=== PATIENT | male | born 1965 | race Caucasian/White ===

== ENCOUNTER 2017-05-17 11:39 | Emergency (ER) | payer BC ==
[~2017-05-17] VITALS: Ht 182.9 cm; Wt 85.7 kg
[~2017-05-17 11:39] MED LIST: CELE100C PO; ETAN50IN2 PO; INSDGI SC; NVLGI SC; TPRSR/50 PO
[2017-05-17 11:49] VITALS: TEMP 37.1; Ht 182.9 cm; Wt 85.7 kg
[2017-05-17] MEDS ORDERED: CEFAZOLIN SOD 1000MG/55 ML D5W IV STA (12:46)
[2017-05-17] MEDS ORDERED: CEPH500C PO (13:25)
[2017-05-17] MEDS ORDERED: ONDA4TAB10 SL (13:25)
--- NOTE | 2017-05-17 13:25 | EMERGENCY ROOM VISIT NOTE ---
History Report prepared by Deeibhilario: Emily Romano Under the Supervision of: Dr. Antonino Peralta D.O. First contact with patient: 12:17 Chief Complaint: FOOT PAIN Stated Complaint: TOE ON RT FOOT/LOWER LEG PAIN-BURNING History of Present Illness The patient is a 52 year old male who presents to the Emergency Room with complaints of persistent right leg pain for the past few days. He describes the pain as feeling like a "burning sensation". The patient has a history of type 1 diabetes and reports this morning while putting on his shoes, he felt a "tug". When he checked his right second toe, the toenail had almost completely detached. He rates his discomfort as a 3/10. He denies any recent injuries or trauma to the area. Source of History: patient Onset: past few days Position: leg (right) Symptom Intensity: 3/10 Quality: burning Timing: other (persistent) Review of Systems See HPI for pertinent positives & negatives. A total of 10 systems reviewed and were otherwise negative. Past Medical & Surgical Medical Problems: (1) Hypertension Nos (2) Psoriatic arthritis (3) Type 1 diabetes mellitus (4) Unspecified Episodic Mood Disorder Social History Smoking Status: Never Smoker Alcohol Use: none Drug Use: none Marital Status: Housing Status: lives with significant other Occupation Status: unemployed Current/Historical Medications Scheduled Celecoxib (Celebrex), 100 MG PO BID Cephalexin Monohydrate (Keflex), 500 MG PO QID Etanercept (Enbrel), 50 MG PO WK Insulin Aspart (Novolog), 0 SC TIDM Insulin Glargine (Lantus), 12 SC QAM Metoprolol Succinate (Metoprolol Succinate ER), 50 MG PO BID Ondasetron Odt (Zofran Odt), 4 MG SL Q6H Allergies Coded Allergies: Sulfa Antibiotics (Verified Allergy, Intermediate, RASH, 06/06/14) Uncoded Allergies: ANTIVIRALS (Adverse Reaction, Severe, KIDNEY FAILURE, 06/06/14) Physical Exam Vital Signs Date Time Temp Pulse Resp B/P (MAP) Pulse Ox O2 Delivery O2 Flow Rate FiO2 05/17/17 11:49 37.1 87 18 129/77 99 Room Air Physical Exam CONSTITUTIONAL/VITAL SIGNS: Reviewed / noted above. GENERAL: Non-toxic in appearance. INTEGUMENTARY: Warm, dry, and [place]. HEAD: Normocephalic. EYES: without scleral icterus or trauma. ENT/OROPHARYNX: clear and moist. LYMPHADENOPATHY/NECK: Is supple without lymphadenopathy or meningismus. RESPIRATORY: Lungs clear and equal. CARDIOVASCULAR: Regular rate and rhythm. GI/ABDOMEN: Soft and nontender. No organomegaly or pulsatile mass. No rebound or guarding. Normal bowel sounds. EXTREMITIES: Warm and well perfused. Redness to the distal half of the 2nd right toe. No obvious abscess. Small red streak is noted on the dorsal aspect of the right foot and several inches up his right leg. BACK: No CVA tenderness. NEUROLOGICAL: Intact without focal deficits. PSYCHIATRIC: normal affect. MUSCULOSKELETAL: Normally developed with good muscle tone. Medical Decision & Procedures Medications Administered Medications (Trade) Dose Ordered Sig/Arsh Route Start Time Stop Time Status Last Admin Dose Admin Cefazolin Sodium (Ancef 1000mg/55 ml D5W) 2,000 mg NOW STAT IV 05/17/17 12:46 05/17/17 12:48 DC 05/17/17 13:05 2,000 MG ED Course 1242: Previous medical records were reviewed. The patient was evaluated in room B2. A complete history and physical examination was performed. 1246: Cefazolin Sodium 2000 mg IV. 1325: I reevaluated the patient. He is feeling well and resting comfortably. I discussed his results and discharge instructions and he verbalized complete understanding and agreement. Medical Decision Differential diagnosis: Etiologies such as cellulitis, abscess, MRSA infection, DVT, necrotizing fasciitis, dermatitis, drug eruption, as well as others were entertained.. This is a 52-year-old male who presents to the ED with a complaint of a right toe infection. He also reports history of diabetes. The patient noticed that this morning. He states that it seemed like his toenail was falling off. The patient's exam reveals evidence of a cellulitis of the right second distal toe. The distal half of the toe is erythematous and there is a small amount of discharge from under the nail. There is no obvious abscess. There is a red streak that travels up the dorsal aspect of the foot into the right distal leg. The patient denies any fevers, nausea or vomiting. He was given IV Ancef. He will be discharged on Keflex. He was given Zofran for nausea that he states that he sometimes gets when taking antibiotics. He is told to follow-up with his PCP later this week for recheck. Medication Reconcilliation Current Medication List: was personally reviewed by me Blood Pressure Screening Patient's blood pressure: Normal blood pressure Blood pressure disposition: Did not require urgent referral Impression Primary Impression: Cellulitis Scribe Attestation The scribe's documentation has been prepared under my direction and personally reviewed by me in its entirety. I confirm that the note above accurately reflects all work, treatment, procedures, and medical decision making performed by me. Departure Information Dispostion Home / Self-Care Prescriptions Ondasetron Odt (ZOFRAN ODT) 4 Mg Tab 4 MG SL Q6H for Nausea, #20 TAB Prov: Antonino Peralta D.O. 05/17/17 Cephalexin Monohydrate (Keflex) 500 Mg Cap 500 MG PO QID, #40 CAP Prov: Antonino Peralta D.O. 05/17/17 Referrals Linda Schreiber D.O. (PCP) Patient Instructions Cellulitis - [facility], [facility] Additional Instructions Keflex as prescribed for infection. Follow-up with your doctor Friday or Friday for recheck. Return for fevers , vomiting, worsening redness or other concerns. Zofran: Allow one tablet to dissolve under the tongue every 6 hours as needed for nausea or vomiting.
[2017-05-17] MEDS ORDERED: MULT-506 PO (13:32)
[2017-05-17] MEDS ORDERED: ASPI81TA28 PO (13:32)
[2017-05-17] MEDS ORDERED: MAGN400T6 PO (13:32)
[2017-05-17] MEDS ORDERED: HYDR-4313 PO (13:32)
[2017-05-17] MEDS ORDERED: PANT20TA PO (13:32)
[2017-05-17 14:15] VITALS: BP 138/74; PULSE 85; O2SAT 100
== END 2017-05-17 14:17 | disposition home or self-care (01) ==
LOC: C.EDB 11:41
DX: L03.031 Cellulitis of right toe (principal); E10.9 Type 1 diabetes mellitus without complications; I10 Essential (primary) hypertension; L40.50 Arthropathic psoriasis, unspecified; Z79.4 Long term (current) use of insulin; Z79.899 Other long term (current) drug therapy

== ENCOUNTER 2020-03-15 14:02 | Inpatient (IN) ==
--- NOTE | 2020-03-15 15:28 | Emergency Department Note ---
Impression & Plan Chest pain, exertional, Acute hyperkalemia ED Provider Note NAME: ALIA PHELPS AGE: 54 SEX: M : 1965 ARRIVES VIA: Walk-In INFORMANT: Patient, ED PROVIDER(S): Mckay Gomez DO CHIEF COMPLAINT: Chest pain HPI: The patient is a 54-year-old male who presented to the emergency department for an evaluation of chest pain. The patient states that he started having exertional chest pain recently. He states that he likes to exercise and he is been walking more outside. He started to notice that when he exerts himself he was developing chest pain which relieved with rest. 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 He was scheduled for cardiac catheterization because of his risk factors and exertional chest pain. Precardiac catheterization laboratory studies did reveal elevated potassium. This blood work was repeated today and the patient was sent to the emergency department for an evaluation. The patient at this time states that he has no chest pain. He denies having any difficulty breathing. He denies having any edema or abdominal pain. He states that he has been taking ibuprofen canp-gwn-foctnia recently. He was switched recently to Celebrex. He states that at one time when he was a child he did develop renal insufficiency because of treatment for TERMITE CONTROL REPRESENTATIVE infection. The patient states that he is never had any problems with his kidneys as far as he knows other than that time when he was young. The patient was referred to the emergency department by his cardiology office. ROS: See above HPI for pertinent positives & negatives. A total of 10 systems reviewed and were otherwise negative. PAST MEDICAL HISTORY: See Below PAST SURGICAL HISTORY: See Below FAMILY HISTORY: See Below SOCIAL HISTORY: See Below HOME MEDICATIONS: See Below ALLERGIES: See Below VITALS: See Below PHYSICAL EXAMINATION: GENERAL: Patient is awake alert in no acute distress patient is resting comfortably and showing no signs of anxiety EYES: The conjunctivae are clear. The pupils are round and reactive. EARS, NOSE, MOUTH AND THROAT: The nose is without any evidence of any deformity. Mucous membranes are moist. Tongue is midline. NECK: The neck is nontender and supple. RESPIRATORY: Normal respiratory effort is noted there is no evidence of wheezing rhonchi or rales CARDIOVASCULAR: Regular rate and rhythm noted there no murmurs rubs or gallops normal S1 normal S2. GASTROINTESTINAL: The abdomen is soft. Abdomen is nontender. MUSCULOSKELETAL/EXTREMITIES: There is no evidence of gross deformity full range of motion is noted in the hips and shoulders. SKIN: There is no obvious evidence of any rash. There are no petechiae, pallor or cyanosis noted. NEUROLOGIC: Patient is awake alert and oriented x3 strength is symmetric patellar reflexes are 2+ bilaterally MEDICAL DECISION MAKING: The patient is a 54-year-old male who presented to the emergency department for an evaluation of abnormal labs. The patient has been experiencing exertional chest pain recently. Given his risk factors he was felt to be at high risk for coronary artery disease. He was scheduled for cardiac catheterization. On his pre-cath laboratory studies the patient was found to have hyperkalemia. This was repeated and found to be elevated and not due to hemolysis. The patient was told to go to the emergency department. He presented to the emergency department. He was treated with IV fluids. EKG does show some slight peaked T waves but it does look very close to his previous EKG. He was treated with IV fluids and eventually with Kayexalate insulin dextrose and calcium. The patient was reevaluated multiple times. I discussed the patient's laboratory and radiographic studies with him. Likely the patient will still require further management and cardiac catheterization so I discussed his case with [facility] They have agreed to evaluate the patient in the emergency department for further management disposition. Triage Nursing notes reviewed. Prior medical records reviewed Vital Signs: reviewed and remarkable for hypertension Differential diagnosis: Cardiac ischemia, aortic dissection, pulmonary embolism, pneumothorax, pneumonia, pericarditis, myocarditis, esophageal rupture, GERD, cholecystitis, pancreatitis, musculoskeletal, as well as other pathologies. ER treatment provided: See below Diagnostics interpreted by me: ECG: EKG was obtained in the emergency department. My interpretation is sinus bradycardia 57 bpm. There is no ectopy. Peaked T waves were noted. This was compared to a tracing from November 26, 2018. No significant changes were noted. Cardiac Monitoring: An order was placed for continuous cardiac monitoring. The monitor shows a rate of 66 with sinus rhythm. Laboratory studies: As stated above and show below. Imaging studies: See below Consultation(s): 1650: I discussed this case with Morenita who is on-call for the [facility]. They have agreed to evaluate the patient in the emergency department for further management and disposition. I have personally spent greater than 35 minutes of critical care time in the direct management of this patient. This includes bedside care, interpretation of diagnostic studies, and testing, discussion with consultants, patient, and family members, and other required patient management activities. This 35 minutes is in excess of all separately billable procedures. Past Med/Surg History Medical History Diabetes type 1, controlled (Acute) Dyslipidemia History of viral meningitis HTN (hypertension) Inappropriate sinus tachycardia Macular edema Neuropathy Psoriatic arthritis Surgical History History of cataract surgery Family History Mother Rheumatoid arthritis Social History Preferred Language: Tanzanian Communication Ability: Effective Beliefs That Will Affect Care: None Current Living Situation: Significant Other Other Information That Helps Us Care for You: No Feels Safe at Home: Yes Smoking Status: Never smoker Hx Alcohol Use: No Hx Substance Use: No Allergies Allergies Allergy/AdvReac Type Severity Reaction Status Date / Time Sulfa (Sulfonamide Allergy Intermediate RASH Verified 03/15/20 15:58 Antibiotics) milk AdvReac Intermediate STOMACH Verified 03/15/20 15:58 UPSET ANTIVIRALS AdvReac Severe KIDNEY Uncoded 03/15/20 15:58 FAILURE Home Meds Home Medications Medication Instructions Recorded Confirmed albuterol sulfate [Ventolin HFA] 2 puff INHALATION DIRECTED PRN 11/26/18 03/15/20 aspirin [Aspir-81] 81 mg PO QAM 11/26/18 03/15/20 hydrocodone-acetaminophen [[place]] 1 tab PO Q6H PRN 11/26/18 03/15/20 sildenafil 100 mg PO DAILY PRN 11/26/18 03/15/20 celecoxib 200 mg PO .HOLD 03/15/20 03/15/20 clobetasol 1 applic TOPICAL BID PRN 03/15/20 03/15/20 erythromycin-benzoyl peroxide 1 applic TOPICAL DAILY 03/15/20 03/15/20 etanercept [Enbrel SureClick] 50 mg SUBCUT WK 03/15/20 03/15/20 folic acid 1 mg PO DAILY 03/15/20 03/15/20 insulin aspart U-100 [Novolog See Rx Instructions .ROUTE .COMPLEX 03/15/20 03/15/20 U-100 Insulin aspart] lisinopril 10 mg PO QAM 03/15/20 03/15/20 lorazepam 0.5 - 1 mg PO DIRECTED PRN 03/15/20 03/15/20 metoprolol succinate 100 mg PO QAM 03/15/20 03/15/20 pantoprazole 20 mg PO QAM 03/15/20 03/15/20 Results & Data (ED) Vital Signs Vital Signs - 24 hr 03/15/20 14:12 03/15/20 15:29 03/15/20 15:30 Temperature 37 C Temperature Source Oral Pulse Rate 63 64 60 Pulse Rhythm Regular Pulse Strength Normal Respiratory Rate 20 15 25 H Respiratory Depth Normal Respiratory Pattern Regular Blood Pressure 151/85 H Blood Pressure Mean 107 Blood Pressure Position Lying Oxygen Delivery Method Room Air Sepsis Recent Fever Within 48 Hours No Sepsis Action Taken by Nursing No Action Required 03/15/20 15:40 03/15/20 15:50 03/15/20 16:00 Temperature Temperature Source Pulse Rate 63 51 L 52 L Pulse Rhythm Pulse Strength Respiratory Rate 17 20 16 Respiratory Depth Respiratory Pattern Blood Pressure Blood Pressure Mean Blood Pressure Position Oxygen Delivery Method Sepsis Recent Fever Within 48 Hours Sepsis Action Taken by Nursing 03/15/20 16:10 03/15/20 16:20 03/15/20 16:30 Temperature Temperature Source Pulse Rate 56 L 52 L 47 L Pulse Rhythm Pulse Strength Respiratory Rate 18 20 21 Respiratory Depth Respiratory Pattern Blood Pressure Blood Pressure Mean Blood Pressure Position Oxygen Delivery Method Sepsis Recent Fever Within 48 Hours Sepsis Action Taken by Nursing 03/15/20 16:40 03/15/20 16:51 03/15/20 16:52 Temperature Temperature Source Pulse Rate 59 L 56 L 52 L Pulse Rhythm Pulse Strength Respiratory Rate 26 H 20 18 Respiratory Depth Respiratory Pattern Blood Pressure 158/81 H Blood Pressure Mean 96 Blood Pressure Position Oxygen Delivery Method Sepsis Recent Fever Within 48 Hours Sepsis Action Taken by Snf Medications Current Medication List: was personally reviewed by me Laboratory Data Attestation: I reviewed the patient's lab results. Result diagrams: 03/16/20 05:20 03/16/20 05:20 Lab Results 06/17/20 06/17/20 06/17/20 Range/Units 15:38 15:38 15:38 WBC 7.90 (4.8-10.8) K/uL RBC 4.62 L (4.7-6.1) M/uL Hgb 13.0 L (14.0-18.0) g/dL Hct 38.9 L (42-52) % MCV 84.2 (80-100) fL MCH 28.1 (25-34) pg MCHC 33.4 (32-36) g/dL RDW Std Deviation 38.7 (36.4-46.3) fL RDW Coeff of Jose Enrique 12.8 (11.5-14.5) % Plt Count 218 (130-400) K/uL MPV 11.6 H (7.4-10.4) fL Immature Gran % (Auto) 0.1 % Neut % (Auto) 64.9 % Lymph % (Auto) 26.6 % [place] % (Auto) 6.1 % Eos % (Auto) 1.8 % Baso % (Auto) 0.5 % Immature Gran # (Auto) 0.01 (0.00-0.02) K/uL Neut # (Auto) 5.13 (1.4-6.5) K/uL Lymph # (Auto) 2.10 (1.2-3.4) K/uL [place] # (Auto) 0.48 (0.11-0.59) K/uL Eos # (Auto) 0.14 (0-0.5) K/uL Baso # (Auto) 0.04 (0-0.2) K/uL PT 11.0 (9.0-12.0) Seconds INR 1.0 (0.9-1.1) APTT 26.4 (21.0-31.0) Seconds PTT Ratio 0.9 Sodium 139 (136-145) mmol/L Potassium 6.4 H* (3.5-5.1) mmol/L Chloride 114 H (98-107) mmol/L Carbon Dioxide 21 (21-32) mmol/L Anion Gap 4.0 (3-11) BUN 27 H (7-18) mg/dl Creatinine 1.30 (0.6-1.4) mg/dl Est Cr Clr Drug Dosing 73.0 ml/min Est GFR ( Amer) 72.7 Est GFR (Non-Af Amer) 62.7 BUN/Creatinine Ratio 20.9 H (10-20) Glucose 97 (70-99) mg/dl Calcium 8.9 (8.5-10.1) mg/dl Total Bilirubin 0.6 (0.2-1) mg/dl AST 17 (15-37) U/L ALT 41 (12-78) U/L Alkaline Phosphatase 106 (45-117) U/L Total Creatine Kinase (39-308) U/L Troponin I < 0.015 (0-0.045) ng/ml Total Protein 7.2 (6.4-8.2) gm/dl Albumin 3.5 (3.4-5.0) gm/dl Globulin 3.7 (2.5-4.0) gm/dl Albumin/Globulin Ratio 0.9 (0.9-2) Lipase 62 L (73-393) U/L / Range/Units 15:38 WBC (4.8-10.8) K/uL RBC (4.7-6.1) M/uL Hgb (14.0-18.0) g/dL Hct (42-52) % MCV (80-100) fL MCH (25-34) pg MCHC (32-36) g/dL RDW Std Deviation (36.4-46.3) fL RDW Coeff of Jose Enrique (11.5-14.5) % Plt Count (130-400) K/uL MPV (7.4-10.4) fL Immature Gran % (Auto) % Neut % (Auto) % Lymph % (Auto) % [place] % (Auto) % Eos % (Auto) % Baso % (Auto) % Immature Gran # (Auto) (0.00-0.02) K/uL Neut # (Auto) (1.4-6.5) K/uL Lymph # (Auto) (1.2-3.4) K/uL [place] # (Auto) (0.11-0.59) K/uL Eos # (Auto) (0-0.5) K/uL Baso # (Auto) (0-0.2) K/uL PT (9.0-12.0) Seconds INR (0.9-1.1) APTT (21.0-31.0) Seconds PTT Ratio Sodium (136-145) mmol/L Potassium (3.5-5.1) mmol/L Chloride (98-107) mmol/L Carbon Dioxide (21-32) mmol/L Anion Gap (3-11) BUN (7-18) mg/dl Creatinine (0.6-1.4) mg/dl Est Cr Clr Drug Dosing ml/min Est GFR ( Amer) Est GFR (Non-Af Amer) BUN/Creatinine Ratio (10-20) Glucose (70-99) mg/dl Calcium (8.5-10.1) mg/dl Total Bilirubin (0.2-1) mg/dl AST (15-37) U/L ALT (12-78) U/L Alkaline Phosphatase (45-117) U/L Total Creatine Kinase 73 (39-308) U/L Troponin I (0-0.045) ng/ml Total Protein (6.4-8.2) gm/dl Albumin (3.4-5.0) gm/dl Globulin (2.5-4.0) gm/dl Albumin/Globulin Ratio (0.9-2) Lipase (73-393) U/L Administered Medications Amlodipine Besylate ([facility]vasc) [facility] [place] Stop: 04/14/20 19:59 Last Admin: 03/16/20 07:44 Dose: 5 mg Documented by: [id number] Admin: 03/15/20 20:03 Dose: 5 mg Documented by: [id number] Aspirin (Ecotrin Ectab) 81 [facility] [place] Stop: 04/15/20 08:59 Last Admin: 03/16/20 09:18 Dose: 81 mg Documented by: [id number] Folic Acid (Folvite) 1 mg PO DAILY [facility] Stop: 04/15/20 08:59 Last Admin: 03/16/20 07:44 Dose: 1 mg Documented by: [id number] Sodium Chloride (Nss 1000ml) 1,000 mls @ 100 mls/hr IV .Q10H [facility] Stop: 03/16/20 14:58 Last Admin: 03/16/20 06:01 Dose: 100 mls/hr Documented by: [id number] Infusion: 03/16/20 06:01 Dose: 100 mls/hr Documented by: [id number] Admin: 03/15/20 20:03 Dose: 100 mls/hr Documented by: [id number] Metoprolol Succinate (Toprol Xl) 100 mg PO [facility] Stop: 04/15/20 08:59 Last Admin: 03/16/20 07:44 Dose: 100 mg Documented by: [id number] Miscellaneous (Order Awaiting Action) 1 ea N/A QS [facility] Stop: 04/15/20 00:00 Last Admin: 03/16/20 07:20 Dose: Not Given Documented by: [id number] Admin: 03/16/20 00:16 Dose: Not Given Documented by: [id number] Pantoprazole Sodium (Protonix) 40 [facility] [place] Stop: 04/15/20 08:59 Last Admin: 03/16/20 07:44 Dose: 40 mg Documented by: [id number] Discontinued Medications Dextrose (Dextrose 50%) 50 ml IV NOW STA Stop: 03/15/20 16:38 Last Admin: 03/15/20 17:13 Dose: 50 ml Documented by: [id number] Sodium Chloride (Nss 1000ml) 1,000 mls @ 999 mls/hr IV .Q1H1M [facility] Stop: 03/15/20 16:30 Last Infusion: 03/15/20 16:34 Dose: 0 mls/hr Documented by: [id number] Admin: 03/15/20 15:40 Dose: 999 mls/hr Documented by: [id number] Calcium Gluconate 1,000 mg/ (Sodium Chloride) 60 mls @ 240 mls/hr IV NOW STA Stop: 03/15/20 17:12 Last Infusion: 03/15/20 17:26 Dose: 0 mls/hr Documented by: [id number] Admin: 03/15/20 17:13 Dose: 240 mls/hr Documented by: [id number] Insulin Human Regular (Novolin R U-100 Per Unit) 10 units IV NOW STA Stop: 03/15/20 16:38 Last Admin: 03/15/20 17:13 Dose: 10 units Documented by: [id number] Cosigned by: [id number] Sodium Polystyrene Sulfonate (Kayexalate) 30 gm PO NOW STA Stop: 03/15/20 16:38 Last Admin: 03/15/20 17:13 Dose: 30 gm Documented by: [id number] Imaging Data Radiologist's Impression: XR chest 1V portable HISTORY: 54 years-old Male Chest Pain acute atypical chest pain COMPARISON: Chest radiograph 12/22/2018 TECHNIQUE: AP view of the chest FINDINGS: Cardiac mediastinal and hilar silhouettes are within normal limits. No pneumothorax, pleural effusion, airspace consolidation or overt pulmonary edema. Bones appear grossly intact. IMPRESSION: No acute process. ACT 112: Negative or not required by law. The above report was generated using voice recognition software. It may contain grammatical, syntax or spelling errors. Electronically signed by: Perry Castaneda M.D. 03/15/2020 4:26 PM Dictated: 03/15/20 161 Transcribed: 03/15/20 161 Blood Pressure Blood Pressure Findings: Elevated blood pressure Blood Pressure Disposition: further management by hospitalist Discharge Plan Visit Data *Final* Discharge Date/Time: 03/15/20 18:15 Chief Complaint: Abnormal Labs/Diagnostic Testing Stated Complaint: CHEST PAIN, HIGH POTASSIUM ED Provider: Mckay Gomez Discharge Problem: Chest pain, exertional, Acute hyperkalemia Patient Disposition: Admitted As Inpatient Condition: Good Discharge Instructions Interventions: ED Discharge Assessment Last Done: 03/15/20 18:15
[2020-03-15] MEDS ORDERED: SODIUM CHLORIDE 0.9% 1000ML 1,000 ML IV SCH (15:30)
[2020-03-15 15:57] LABS: Basophils # (auto) 0.04 K/uL (0-0.2); Basophils % (auto) 0.5 %; Eosinophils # (auto) 0.14 K/uL (0-0.5); Eosinophils % (auto) 1.8 %; Hematocrit (blood only) 38.9 % (42-52); Immature Granulocytes # (auto) 0.01 K/uL (0.00-0.02); Immature Granulocytes % (auto) 0.1 %; Lymphocytes % (auto) 26.6 %; Mean Corpuscular Hemoglobin 28.1 pg (25-34); Mean Corpuscular Hgb Conc 33.4 g/dL (32-36); Mean Corpuscular Volume 84.2 fL (80-100); Mean Platelet Volume 11.6 fL (7.4-10.4); Monocytes # (auto) 0.48 K/uL (0.11-0.59); Monocytes % (auto) 6.1 %; Neutrophils # (auto) 5.13 K/uL (1.4-6.5); Neutrophils % (auto) 64.9 %; Platelet Count 218 K/uL (130-400); RDW Coefficient of Variation 12.8 % (11.5-14.5); RDW Standard Deviation 38.7 fL (36.4-46.3); Red Blood Count 4.62 M/uL (4.7-6.1)
[2020-03-15 16:22] LABS: Alanine Aminotransferase 41 U/L (12-78); Albumin Globulin Ratio 0.9 (0.9-2); Albumin Level 3.5 gm/dl (3.4-5.0); Alkaline Phosphatase 106 U/L (45-117); Aspartate Aminotransferase 17 U/L (15-37); BUN Creatinine Ratio 20.9 (10-20); Bilirubin,Total 0.6 mg/dl (0.2-1); Blood Urea Nitrogen 27 mg/dl (7-18); Calcium 8.9 mg/dl (8.5-10.1); Carbon Dioxide 21 mmol/L (21-32); Chloride 114 mmol/L (98-107); Est GFR (African American) 72.7; Est GFR (Non-African American) 62.7; Globulin 3.7 gm/dl (2.5-4.0); Glucose 97 mg/dl (70-99); Lipase 62 U/L (73-393); Potassium 6.4 mmol/L (3.5-5.1); Sodium 139 mmol/L (136-145); Total Protein 7.2 gm/dl (6.4-8.2); Troponin I < 0.015 ng/ml (0-0.045)
[2020-03-15 16:23] LABS: Partial Thromboplastin Ratio 0.9; Partial Thromboplastin Time 26.4 Seconds (21.0-31.0)
--- NOTE | 2020-03-15 16:28 | XRay Report ---
XR chest 1V portable HISTORY: 54 years-old Male Chest Pain acute atypical chest pain COMPARISON: Chest radiograph 12/22/2018 TECHNIQUE: AP view of the chest FINDINGS: Cardiac mediastinal and hilar silhouettes are within normal limits. No pneumothorax, pleural effusion , airspace consolidation or overt pulmonary edema. Bones appear grossly intact. IMPRESSION: No acute process. ACT 112: Negative or not required by law. The above report was generated using voice recognition software. It may contain grammatical, syntax o r spelling errors. Electronically signed by: Perry Castaneda M.D. 03/15/2020 4:26 PM
[2020-03-15] MEDS ORDERED: SODIUM POLYSTYRENE SULFONATE 15G/60ML SUSP PO STA (16:37)
[2020-03-15] MEDS ORDERED: CALCIUM GLUCONATE 10% 1,000 MG in SODIUM CHLORIDE 0.9% 50 ML IV STA ×2 (16:37→16:58)
[2020-03-15] MEDS ORDERED: DEXTROSE 50% 50 ML SYRINGE IV STA (16:37)
[2020-03-15] MEDS ORDERED: NovoLIN-R INSULIN PER UNIT CHARGE IV STA (16:37)
--- NOTE | 2020-03-15 18:21 | History & Physical Report ---
Date of Service March 15, 2020 Assessment & Plan (1) Acute hyperkalemia: Pt is 54 y/o M with PMH DM I on insulin pump, inappropriate sinus tachycardia on beta rebecca, h/o orthostatic hypotension with dysautonomia, HTN, dyslipidemia, psoriasis, arthritis presented to ER for abnormal labs including hyperkalemia. Yesterday had pre-op labs with K: 6.5. Repeat labs today with K:6 and was referred to ER. C/O muscle cramps to lower legs. No active CP In ER afebrile, vitals stable. K: 6.4, EKG with some peaked T waves, sinus bradycardia, Cr: 1.3, GFR: 62 (baseline Cr: 1.2 with GFR>60) -In ER given 1L NSS, calcium gluconate 1000mg IV, Insulin R 10 units IV, Dextrose 50ml, Kayexalate -Repeat K tonight -CPK pending -Hold lisinopril -IVF -BMP in am (2) Chest pain, exertional: Pt was seen by outpatient cardiology yesterday for exertional CP & SOB x 3 weeks that resolves with rest. He was set up to have outpatient cardiac cath on 03/17/2020 at [facility] Outpatient echo, EF: 55-59% -Consult cardiology to re-evaluate if want to proceed with cath tomorrow -Will keep npo tonight in case of procedure (3) Inappropriate sinus tachycardia: On beta rebecca -Continue metoprolol (4) Diabetes type 1, controlled: On insulin pump -Continue insulin pump, pt self manage -Monitor BSGs closely, pt did not eat today and did receive 10 units insulin R and dextrose, BSG in ER was 75 -A1c in am (5) HTN (hypertension): BP variable in ER -Hold lisinopril with hyperkalemia -Continue metoprolol -Start amlodipine (6) Psoriatic arthritis: Follows with rheumatology - Dr Mathews On Enbrel, takes on Saturdays -Continue chronic hydrocodone/acetaminophen as needed DVT Prophylaxis -SCDs Follows with Dr Schreiber for routine care Pt was seen and care coordinated with Dr Nichols. See addendum Pt's Nu would like to be called and updated if pt does have cardiac cath planned. Her phone is [phone] History of Present Illness Chief Complaint: Elevated Potassium lab Primary Care Provider: Linda Schreiber DO Pt is 54 y/o M with PMH DM I on insulin pump, inappropriate sinus tachycardia on beta rebecca, h/o orthostatic hypotension with dysautonomia, HTN, dyslipidemia, psoriasis, arthritis presented to ER for abnormal labs including hyperkalemia. Pt was seen by outpatient cardiology yesterday for exertional CP & SOB x 3 weeks that resolves with rest. He was set up to have outpatient cardiac cath on 03/17/2020 at [facility]. Yesterday had pre-op labs with K: 6.5. Repeat labs today with K:6 and was referred to ER. Pt reports chronic joint pain. States past several days has been having some muscle cramps to lower legs. Denies diet high in potassium. Has been on lisinopril 10mg daily for a long time and reports approx 1.5 months ago with elevated BP's and was increased to 20mg daily however pt was experiencing orthostatic hypotension and has been taking 10mg daily for approx 3 weeks. Denies any current CP or SOB. Denies fever/chills, diaphoresis, N/V/D/C, SING[place], dizziness, syncope, vision changes, neck pain, orthopnea, cough, sore throat, choking, otalgia, rhinorrhea, abdominal pain, paresthesias, extremity weakness, extremity edema, rashes, urinary symptoms. Allergies Allergy/AdvReac Type Severity Reaction Status Date / Time Sulfa (Sulfonamide Allergy Intermediate RASH Verified 03/15/20 15:58 Antibiotics) milk AdvReac Intermediate STOMACH Verified 03/15/20 15:58 UPSET ANTIVIRALS AdvReac Severe KIDNEY Uncoded 03/15/20 15:58 FAILURE Home Medications Home Medications Medication Instructions Recorded Confirmed Type albuterol sulfate [Ventolin HFA] 2 puff INHALATION DIRECTED PRN 11/26/18 03/15/20 History aspirin [Aspir-81] 81 mg PO QAM 11/26/18 03/15/20 History hydrocodone-acetaminophen [[place]] 1 tab PO Q6H PRN 11/26/18 03/15/20 History sildenafil 100 mg PO DAILY PRN 11/26/18 03/15/20 History celecoxib 200 mg PO .HOLD 03/15/20 03/15/20 History clobetasol 1 applic TOPICAL BID PRN 03/15/20 03/15/20 History erythromycin-benzoyl peroxide 1 applic TOPICAL DAILY 03/15/20 03/15/20 History etanercept [Enbrel SureClick] 50 mg SUBCUT WK 03/15/20 03/15/20 History folic acid 1 mg PO DAILY 03/15/20 03/15/20 History insulin aspart U-100 [Novolog See Rx Instructions .ROUTE .COMPLEX 03/15/20 03/15/20 History U-100 Insulin aspart] lisinopril 10 mg PO QAM 03/15/20 03/15/20 History lorazepam 0.5 - 1 mg PO DIRECTED PRN 03/15/20 03/15/20 History metoprolol succinate 100 mg PO QAM 03/15/20 03/15/20 History pantoprazole 20 mg PO QAM 03/15/20 03/15/20 History Past Med/Surg History Medical History Diabetes type 1, controlled (Acute) Dyslipidemia History of viral meningitis HTN (hypertension) Inappropriate sinus tachycardia Macular edema Neuropathy Psoriatic arthritis Surgical History History of cataract surgery Family History Mother Rheumatoid arthritis Social History Preferred Language: Cymraes Communication Ability: Effective Beliefs That Will Affect Care: None Current Living Situation: Significant Other Other Information That Helps Us Care for You: No Feels Safe at Home: Yes Smoking Status: Never smoker Hx Alcohol Use: No Hx Substance Use: No Review of Systems Review of Systems: All systems reviewed & are unremarkable except as noted in HPI & below Physical Exam Physical Exam: General: no distress, WDWN Head: normocephalic, atraumatic Eyes: PERRL, EOM's intact, conjunctiva non-injected, anicteric ENT: normal inspection external ears, nose, mucous membranes moist Neck: supple, trachea midline Lungs: clear, no respiratory distress, no wheezing/rhonchi/rales CV: RRR, no murmur, no pretibial edema Abd: normal BS, soft, non-tender Ext: no cyanosis, no calf tenderness Neuro: A&O x 3, no focal deficits noted, normal affect Skin: warm, dry Results & Data Results & Data ([facility]) Vital Signs (Past 12 Hours) Vital Signs Temp Pulse Resp BP Pulse Ox 03/15/20 18:15 78 19 153/100 H 99 03/15/20 16:52 52 L 18 03/15/20 16:51 56 L 20 158/81 H 03/15/20 16:40 59 L 26 H 03/15/20 16:30 47 L 21 03/15/20 16:20 52 L 20 03/15/20 16:10 56 L 18 03/15/20 16:00 52 L 16 03/15/20 15:50 51 L 20 03/15/20 15:40 63 17 03/15/20 15:30 60 25 H 03/15/20 15:29 64 15 03/15/20 14:12 37 C 63 20 151/85 H Laboratory Results Short CBC 03/15/20 Range/Units 15:38 WBC 7.90 (4.8-10.8) K/uL Hgb 13.0 L (14.0-18.0) g/dL Hct 38.9 L (42-52) % Plt Count 218 (130-400) K/uL BMP 03/15/20 15:38 Sodium 139 Potassium 6.4 H* Chloride 114 H Carbon Dioxide 21 BUN 27 H Creatinine 1.30 Glucose 97 Calcium 8.9 Cardiac Enzymes 03/15/20 Range/Units 15:38 Troponin I < 0.015 (0-0.045) ng/ml Liver Function 03/15/20 Range/Units 15:38 Total Bilirubin 0.6 (0.2-1) mg/dl AST 17 (15-37) U/L ALT 41 (12-78) U/L Alkaline Phosphatase 106 (45-117) U/L Albumin 3.5 (3.4-5.0) gm/dl Diagnostic Findings CXR: IMPRESSION: No acute process. ECG Rhythm: sinus bradycardia Code Status & VTE Plan VTE Prophylaxis Plan VTE Prophylaxis will be ordered: Yes Supervising Physician Co-Signing Physician Notes Patient is a 54-year-old male with history of type 1 diabetes mellitus on insulin pump, inappropriate sinus tachycardia, orthostatic hypotension and other medical problems presents for evaluation and management of abnormal labs. He was found to be hypokalemic while in ED. He received IV fluids, calcium gluconate, insulin, dextrose, Kayexalate in ED. Also states having exertional shortness of breath associated with some chest pain for the past 3 weeks and has been planned for outpatient cardiac catheterization on March 17. Please review HPI for complete details of presentation. On exam patient is moderately built and nourished, normocephalic atraumatic, lungs are clear to auscultation, normal breath sounds, S1-S2, no murmur, abdomen soft nontender, no pedal edema, grossly no focal neurological deficits. Patient is admitted for management of acute hyperkalemia and exertional shortness of breath/chest pain. Hyperkalemia resolved with above management. Will monitor renal function closely. Will hold lisinopril for now. Keep him n.p.o. for now for possible cardiac cath in a.m. Will consult cardiology for further evaluation while hospitalized. I personally reviewed the record. Patient is interviewed and examined at bedside. Patient's care is coordinated with Lesly Altamirano PA-C. Please refer to the documentation above for details of patient's presentation and for discussion of other issues.
[2020-03-15] MEDS ORDERED: DEXTROSE 50% 50 ML SYRINGE IV PRN (18:59)
[2020-03-15] MEDS ORDERED: GLUCOSE 10 TABS/TUBE PO PRN (18:59)
[2020-03-15] MEDS ORDERED: GLUCOSE 40% GEL 15 GM TUBE PO PRN (18:59)
[2020-03-15] MEDS ORDERED: ACETAMINOPHEN 325 MG TAB PO PRN (18:59)
[2020-03-15] MEDS ORDERED: GLUCAGON FOR INJ 1 MG VIAL SQ PRN (18:59)
[2020-03-15] MEDS ORDERED: CARBOHYDRATES FOR HYPOGLYCEMIA PO PRN (18:59)
[2020-03-15] MEDS ORDERED: NovoLOG INSULIN PUMP SCH (20:00)
[2020-03-15] MEDS: SODIUM CHLORIDE 0.9% 1000ML 1,000 ML IV SCH (20:03)
[2020-03-15] MEDS: AMLODIPINE BESYLATE 5 MG TAB PO SCH (20:03)
[2020-03-15 20:14] LABS: BUN Creatinine Ratio 19.8 (10-20); Calcium 8.6 mg/dl (8.5-10.1); Creatinine Clr Calc Pharmacy 80.4 ml/min; Est GFR (African American) 81.7; Est GFR (Non-African American) 70.5
[2020-03-16] MEDS: *CLOBETASOL*ORDER AWAITING ACTION SCH ×3 (00:16→15:30)
[2020-03-16 05:55] LABS: Hematocrit (blood only) 34.8 % (42-52); Hemoglobin 11.9 g/dL (14.0-18.0); Mean Corpuscular Hemoglobin 28.2 pg (25-34); Mean Corpuscular Hgb Conc 34.2 g/dL (32-36); Mean Corpuscular Volume 82.5 fL (80-100); Mean Platelet Volume 11.4 fL (7.4-10.4); Platelet Count 175 K/uL (130-400); RDW Coefficient of Variation 12.7 % (11.5-14.5); RDW Standard Deviation 38.4 fL (36.4-46.3); Red Blood Count 4.22 M/uL (4.7-6.1); White Blood Count 6.52 K/uL (4.8-10.8)
[2020-03-16] MEDS: SODIUM CHLORIDE 0.9% 1000ML 1,000 ML IV SCH (06:01)
[2020-03-16 06:17] LABS: Estimated Average Glucose 128 mg/dl; Hemoglobin A1C 6.1 % (4.5-5.6)
[2020-03-16 06:23] LABS: BUN Creatinine Ratio 19.1 (10-20); Calcium 8.5 mg/dl (8.5-10.1); Creatinine Clr Calc Pharmacy 104.2 ml/min; Est GFR (African American) 111.9; Est GFR (Non-African American) 96.6; Magnesium 1.8 mg/dl (1.8-2.4); Potassium 5.2 mmol/L (3.5-5.1)
[2020-03-16] MEDS: FOLIC ACID 1 MG TAB PO SCH (07:44)
[2020-03-16] MEDS: AMLODIPINE BESYLATE 5 MG TAB PO SCH (07:44)
[2020-03-16] MEDS: PANTOprazole 40 MG TAB PO SCH (07:44)
[2020-03-16] MEDS: METOPROLOL SUCC 50MG EXT REL TAB PO SCH (07:44)
--- NOTE | 2020-03-16 08:56 | Cardiology Consultation ---
Date of Consultation March 16, 2020 Assessment & Plan (1) Acute hyperkalemia: (2) Chest pain, exertional: (3) Inappropriate sinus tachycardia: (4) Psoriatic arthritis: (5) Diabetes type 1, controlled: The patient's potassium is improved today but is still slightly elevated. I am going to consult nephrology for their opinion. This could be related strictly to the KESHAWN inhibitor however, he is a type I diabetic with autonomic dysfunction and vascular disease, so I want to make sure that we are not missing anything prior to proceeding with a cardiac catheterization. If nephrology feels it is okay to proceed then he will have the cardiac catheterization as previously scheduled tomorrow. Dr. De La Torre will be doing the heart catheterization. History of Present Illness Attending Physician: Devorah Harding MD History of Present Illness This is a 54-year-old type I diabetic with autonomic dysfunction, chronic fatigue and psoriatic arthritis. He has been having exertional chest discomfort and was scheduled for a cardiac catheterization tomorrow. His outpatient labs indicate hyperkalemia with a potassium greater than 6. He was hospitalized and given IV fluids. His potassium now is 5.2. He has been on lisinopril which was discontinued. He has had no chest pain. Past Medical History: 1.Exertional chest pain x3 weeks, increasing in frequency, reduced functional capacity, Reproducible. Concerning for crescendo angina. No symptoms currently in the office. No acute EKG changes. Preserved LV function on echo without wall motion abnormalities. 2.Hypertension -borderline uncontrolled. Did not tolerate higher dose lisinopril. 3.Dysautonomia in setting of DM-1, inappropriate sinus tachycardia, possible POTS. -heart rate controlled with beta-rebecca 4.Dyslipidemia - intolerant to atorvastatin and pravastatin; tolerating Zetia 5.DM-1 : controlled; insulin pump managed by endocrinology 6.Psoriatic arthritis - followed by rheumatology 7.Chronic fatigue Allergies Allergy/AdvReac Type Severity Reaction Status Date / Time Sulfa (Sulfonamide Allergy Intermediate RASH Verified 03/15/20 15:58 Antibiotics) milk AdvReac Intermediate STOMACH Verified 03/15/20 15:58 UPSET ANTIVIRALS AdvReac Severe KIDNEY Uncoded 03/15/20 15:58 FAILURE Home Medications Home Medications Medication Instructions Recorded Confirmed Type albuterol sulfate [Ventolin HFA] 2 puff INHALATION DIRECTED PRN 11/26/18 03/15/20 History aspirin [Aspir-81] 81 mg PO QAM 11/26/18 03/15/20 History hydrocodone-acetaminophen [[place]] 1 tab PO Q6H PRN 11/26/18 03/15/20 History sildenafil 100 mg PO DAILY PRN 11/26/18 03/15/20 History celecoxib 200 mg PO .HOLD 03/15/20 03/15/20 History clobetasol 1 applic TOPICAL BID PRN 03/15/20 03/15/20 History erythromycin-benzoyl peroxide 1 applic TOPICAL DAILY 03/15/20 03/15/20 History etanercept [Enbrel SureClick] 50 mg SUBCUT WK 03/15/20 03/15/20 History folic acid 1 mg PO DAILY 03/15/20 03/15/20 History insulin aspart U-100 [Novolog See Rx Instructions .ROUTE .COMPLEX 03/15/20 03/15/20 History U-100 Insulin aspart] lisinopril 10 mg PO QAM 03/15/20 03/15/20 History lorazepam 0.5 - 1 mg PO DIRECTED PRN 03/15/20 03/15/20 History metoprolol succinate 100 mg PO QAM 03/15/20 03/15/20 History pantoprazole 20 mg PO QAM 03/15/20 03/15/20 History Patient History Medical History Diabetes type 1, controlled (Acute) Dyslipidemia History of viral meningitis HTN (hypertension) Inappropriate sinus tachycardia Macular edema Neuropathy Psoriatic arthritis Surgical History History of cataract surgery Family History Mother Rheumatoid arthritis Social History Preferred Language: Hebrew Communication Ability: Effective Beliefs That Will Affect Care: None Current Living Situation: Significant Other Other Information That Helps Us Care for You: No Feels Safe at Home: Yes Smoking Status: Never smoker Hx Alcohol Use: No Hx Substance Use: No Review of Systems Review of Systems: All systems reviewed & are unremarkable except as noted in HPI & below Nothing additional to add Physical Exam Physical Exam: General: no acute distress and stated age Head: normocephalic, no masses, lesions, tenderness or abnormalities Eyes: conjunctiva are pink and non-injected, sclera clear Neck: supple, no adenopathy, no bruits, normal jugular venous pulse, no hepatojugular reflux Chest: normal shape and normal respiratory effort Lungs: clear to auscultation and percussion Cardiac Exam: - regular rate & rhythm, no murmurs gallops or rubs - normal S1, normal S2 Pulses: 2(+) throughout Abdomen: abdomen soft, non-tender, no abnormal masses and no hepatosplenomegaly Musculoskeletal: no gait disturbance, no joint inflammation, no deforming arthritis Extremities: no edema and no cyanosis Neuro: grossly normal exam Results & Data ([facility]) Vital Signs (Past 12 Hours) Vital Signs Temp Pulse Pulse Resp BP Pulse Ox 03/16/20 08:00 67 03/16/20 07:30 36.7 C 69 18 154/75 H 96 03/16/20 03:50 36.9 C 69 20 153/85 H 97 03/16/20 02:45 59 L 03/16/20 00:36 36.9 C 61 20 146/80 H 96 Laboratory Results Laboratory Results - last 24 hr 03/15/20 03/15/20 03/15/20 15:38 15:38 15:38 WBC 7.90 RBC 4.62 L Hgb 13.0 L Hct 38.9 L MCV 84.2 MCH 28.1 MCHC 33.4 RDW Std Deviation 38.7 RDW Coeff of Jose Enrique 12.8 Plt Count 218 MPV 11.6 H Immature Gran % (Auto) 0.1 Neut % (Auto) 64.9 Lymph % (Auto) 26.6 [place] % (Auto) 6.1 Eos % (Auto) 1.8 Baso % (Auto) 0.5 Immature Gran # (Auto) 0.01 Neut # (Auto) 5.13 Lymph # (Auto) 2.10 [place] # (Auto) 0.48 Eos # (Auto) 0.14 Baso # (Auto) 0.04 PT 11.0 INR 1.0 APTT 26.4 PTT Ratio 0.9 Sodium 139 Potassium 6.4 H* Chloride 114 H Carbon Dioxide 21 Anion Gap 4.0 BUN 27 H Creatinine 1.30 Est Cr Clr Drug Dosing 73.0 Est GFR ( Amer) 72.7 Est GFR (Non-Af Amer) 62.7 BUN/Creatinine Ratio 20.9 H Glucose 97 POC Glucose Estimat Average Glucose Hemoglobin A1c Calcium 8.9 Magnesium Total Bilirubin 0.6 AST 17 ALT 41 Alkaline Phosphatase 106 Total Creatine Kinase Troponin I < 0.015 Total Protein 7.2 Albumin 3.5 Globulin 3.7 Albumin/Globulin Ratio 0.9 Lipase 62 L 03/15/20 03/15/20 03/16/20 15:38 19:21 05:20 WBC 6.52 RBC 4.22 L Hgb 11.9 L Hct 34.8 L MCV 82.5 MCH 28.2 MCHC 34.2 RDW Std Deviation 38.4 RDW Coeff of Jose Enrique 12.7 Plt Count 175 MPV 11.4 H Immature Gran % (Auto) Neut % (Auto) Lymph % (Auto) [place] % (Auto) Eos % (Auto) Baso % (Auto) Immature Gran # (Auto) Neut # (Auto) Lymph # (Auto) [place] # (Auto) Eos # (Auto) Baso # (Auto) PT INR APTT PTT Ratio Sodium 141 Potassium 5.0 D Chloride 114 H Carbon Dioxide 21 Anion Gap 6.0 BUN 23 H Creatinine 1.18 Est Cr Clr Drug Dosing 80.4 Est GFR ( Amer) 81.7 Est GFR (Non-Af Amer) 70.5 BUN/Creatinine Ratio 19.8 Glucose 135 H POC Glucose Estimat Average Glucose Hemoglobin A1c Calcium 8.6 Magnesium Total Bilirubin AST ALT Alkaline Phosphatase Total Creatine Kinase 73 Troponin I Total Protein Albumin Globulin Albumin/Globulin Ratio Lipase 03/16/20 03/16/20 03/16/20 05:20 05:20 07:22 WBC RBC Hgb Hct MCV MCH MCHC RDW Std Deviation RDW Coeff of Jose Enrique Plt Count MPV Immature Gran % (Auto) Neut % (Auto) Lymph % (Auto) [place] % (Auto) Eos % (Auto) Baso % (Auto) Immature Gran # (Auto) Neut # (Auto) Lymph # (Auto) [place] # (Auto) Eos # (Auto) Baso # (Auto) PT INR APTT PTT Ratio Sodium 143 Potassium 5.2 H Chloride 117 H Carbon Dioxide 22 Anion Gap 4.0 BUN 17 Creatinine 0.91 Est Cr Clr Drug Dosing 104.2 Est GFR ( Amer) 111.9 Est GFR (Non-Af Amer) 96.6 BUN/Creatinine Ratio 19.1 Glucose 88 POC Glucose 90 Estimat Average Glucose 128 Hemoglobin A1c 6.1 H Calcium 8.5 Magnesium 1.8 Total Bilirubin AST ALT Alkaline Phosphatase Total Creatine Kinase Troponin I Total Protein Albumin Globulin Albumin/Globulin Ratio Lipase Medications Administered Current Inpatient Medications Acetaminophen (Tylenol) 650 mg PO Q4H PRN PRN Reason: Pain or Fever Stop: 04/14/20 18:58 Hydrocodone Bitart/Acetaminophen ([place] 5/325) 1 tab PO Q6H PRN PRN Reason: Pain Stop: 03/29/20 19:10 Amlodipine Besylate ([facility]vasc) [facility] Stop: 04/14/20 19:59 Last Admin: 03/16/20 07:44 Dose: 5 mg Documented by: Aspirin (Ecotrin Ectab) 81 mg PO QAM [facility] Stop: 04/15/20 08:59 Last Admin: 03/16/20 09:18 Dose: 81 mg Documented by: Dextrose (Dextrose 50%) 25 - 50 ml IV UD PRN; Protocol PRN Reason: Hypoglycemia Protocol Stop: 04/14/20 18:58 Folic Acid (Folvite) 1 mg PO DAILY [facility] Stop: 04/15/20 08:59 Last Admin: 03/16/20 07:44 Dose: 1 mg Documented by: Glucagon (Glucagen) 1 mg SQ UD PRN; Protocol PRN Reason: Hypoglycemia Protocol Stop: 04/14/20 18:58 Glucose (Dex4 Glucose) 4 - 8 tabs PO UD PRN; Protocol PRN Reason: Hypoglycemia Protocol Stop: 04/14/20 18:58 Glucose (Glucose 40%) 15 - 30 gm PO UD PRN; Protocol PRN Reason: Hypoglycemia Protocol Stop: 04/14/20 18:58 Sodium Chloride (Nss 1000ml) 1,000 mls @ 100 mls/hr IV .Q10H [facility] Stop: 03/16/20 14:58 Last Admin: 03/16/20 06:01 Dose: 100 mls/hr Documented by: Insulin Aspart (Novolog Insulin Pump) 1 ea N/A UD [facility] Stop: 04/14/20 19:59 Metoprolol Succinate (Toprol Xl) 100 mg PO QAM [facility] Stop: 04/15/20 08:59 Last Admin: 03/16/20 07:44 Dose: 100 mg Documented by: Miscellaneous (Carbohydrates For Hypoglycemia) 15 - 30 gm PO UD PRN PRN Reason: Hypoglycemia Protocol Stop: 04/14/20 18:58 Miscellaneous (Order Awaiting Action) 1 ea N/A QS [facility] Stop: 04/15/20 00:00 Last Admin: 03/16/20 07:20 Dose: Not Given Documented by: Pantoprazole Sodium (Protonix) 40 mg PO QAM [facility] Stop: 04/15/20 08:59 Last Admin: 03/16/20 07:44 Dose: 40 mg Documented by:
[2020-03-16] MEDS: ASPIRIN 81 MG ECTAB PO SCH (09:18)
[2020-03-16] MEDS: HYDROCODONE/ACETAMOPHEN 5/325MG TAB PO PRN ×3 (11:21→23:59)
--- NOTE | 2020-03-16 13:02 | Nephrology Consultation ---
Date of Consultation March 16, 2020 Assessment & Plan (1) Hyperkalemia: believe this was d/t recent introduction and uptitration of celebrex past month in setting of heavier ibuprofen use and chronic and I would consider obligate ACEI use (d/t DM/HTN). baseline OP creatinine 1.2-1.3 more recently; in house off of nsaids/acei and on ivf, he's already down to 0.9 from 1.3 on presentation. While as an outpatient he technically does not meet criteria for CKD suspect he has some underlying renal dysfunction related to hepatic complications -lisinopril on hold as are nsaids - continue to hold until at least 48 hrs after cardiac cath pending reassessment of renal indices -ordered uacm/ACR -agree w/ low k diet for now -will recheck bmp now and give further recommendations >starting 8-12 hrs before cardiac cath and running 8-12 hrs afterward, recommend bicarb rich fluid to control K and in prep for IV dye >> recommend D5W w/ 75 mEq/L sodium bicarbonate at 75 mL/hr (better for bp control but less good for BG control) or (second choice) 1/2 NS w/ 75 mEq/L sodium bicarbonate Present on Admission?: Yes (2) HTN (hypertension): consistent HTN since arrival w/ sbp in 150s; currently aCEI on hold; on am lodipine 5 mg (just started) and metoprolol 100 mg XL q am; would be permissive in inpatient setting as long as no sx -- current spb range acceptable -cont these medications -ACEI as above Present on Admission?: Yes (3) Chest pain, exertional: -defer to cardiology whether nsaids appropriate in this pt -- answer l bhanuely to depend on cath results; do note that the emergence of exertional chest pain coincides with increased NSAID burden Care coordinated w/ Dr Harding. Present on Admission?: Yes History of Present Illness Reason for Consultation: hyperkalemia Requesting Physician: Dr Shepherd Attending Physician: Devorah Harding MD History of Present Illness 54-year-old male whom I am asked to see for hyperkalemia after he was admitted to manage the same. Past medical history includes type 1 diabetes x 23 years w/ retinopathy and autonomic dysfunction, hypertension, psoriatic arthritis on chronic immunosuppression and chronic nsaids and opiates. About 2 or 3 weeks ago he developed exertional dyspnea. He normally walks miles in his [facility]; most recently he had to stop up to 7 times on that trip in order to complete the walk. He had been undergoing outpatient evaluation for exertional dyspnea with outpatient cardiac catheterization planned and was noted on preoperative labs to have a potassium of 6.5 with repeat labs 6.4. In the ER, he received insulin IV and Kayexalate with potassium improved to 5.2 this morning. His blood sugars have run in the 90-120 range and are as OP well controlled. His outpatient medications include Celebrex, lisinopril 10 mg daily, BB, etanercept, prn albuterol. Late last month he was started on a trial of Celebrex and in mid February this was increased to twice daily. He also takes 200 mg ibuprofen multiple times daily up to 5 tablets most recently daily. NSAID use has increased in the past few months since patient has been unable to access chiropractic services during pandemic. No prior hx of elevated k. he is receiving NS at 100 mL hourly currently. Allergies Allergy/AdvReac Type Severity Reaction Status Date / Time Sulfa (Sulfonamide Allergy Intermediate RASH Verified 03/15/20 15:58 Antibiotics) milk AdvReac Intermediate STOMACH Verified 03/15/20 15:58 UPSET ANTIVIRALS AdvReac Severe KIDNEY Uncoded 03/15/20 15:58 FAILURE Home Medications Home Medications Medication Instructions Recorded Confirmed Type albuterol sulfate [Ventolin HFA] 2 puff INHALATION DIRECTED PRN 11/26/18 03/15/20 History aspirin [Aspir-81] 81 mg PO QAM 11/26/18 03/15/20 History hydrocodone-acetaminophen [[place]] 1 tab PO Q6H PRN 11/26/18 03/15/20 History sildenafil 100 mg PO DAILY PRN 11/26/18 03/15/20 History celecoxib 200 mg PO .HOLD 03/15/20 03/15/20 History clobetasol 1 applic TOPICAL BID PRN 03/15/20 03/15/20 History erythromycin-benzoyl peroxide 1 applic TOPICAL DAILY 03/15/20 03/15/20 History etanercept [Enbrel SureClick] 50 mg SUBCUT WK 03/15/20 03/15/20 History folic acid 1 mg PO DAILY 03/15/20 03/15/20 History insulin aspart U-100 [Novolog See Rx Instructions .ROUTE .COMPLEX 03/15/20 03/15/20 History U-100 Insulin aspart] lisinopril 10 mg PO QAM 03/15/20 03/15/20 History lorazepam 0.5 - 1 mg PO DIRECTED PRN 03/15/20 03/15/20 History metoprolol succinate 100 mg PO QAM 03/15/20 03/15/20 History pantoprazole 20 mg PO QAM 03/15/20 03/15/20 History Patient History Medical History Diabetes type 1, controlled (Acute) Dyslipidemia History of viral meningitis HTN (hypertension) Inappropriate sinus tachycardia Macular edema Neuropathy Psoriatic arthritis Surgical History History of cataract surgery Family History Mother Rheumatoid arthritis Social History Preferred Language: Hebrew Communication Ability: Effective Beliefs That Will Affect Care: None Current Living Situation: Significant Other Other Information That Helps Us Care for You: No Feels Safe at Home: Yes Smoking Status: Never smoker Hx Alcohol Use: No Hx Substance Use: No Review of Systems Review of Systems: All systems reviewed & are unremarkable except as noted in HPI & below Musculoskeletal: + back pain Physical Exam Constitutional: well developed and well nourished; no acute distress On room air, maneuvers readily for exam without assistance Eyes: EOM intact bilaterally ENMT: Ears: no external ear abnormality Nose: no external nose abnormality Mouth: + dry oral mucous membranes Neck: no nuchal rigidity Respiratory: normal respiratory effort Auscultation: lungs clear to auscultation bilaterally and + diminished lung sounds Cardiovascular: RRR, no murmur, no edema Gastrointestinal (Abdomen): Inspection/Auscultation: normal bowel sounds Percussion/Palpation: abdomen soft; abdomen nontender Musculoskeletal: Extremities: strength 5/5 throughout Skin: no rashes, warm and dry + pallor Neurologic: castaneda, fluent speech, no tremor Psychiatric: A+Ox3, euthymic affect Results & Data Vital Signs (Past 12 Hours) Vital Signs Temp Pulse Pulse Resp BP Pulse Ox 03/16/20 11:00 36.9 C 66 18 164/74 H 97 03/16/20 08:00 67 03/16/20 07:30 36.7 C 69 18 154/75 H 96 03/16/20 03:50 36.9 C 69 20 153/85 H 97 03/16/20 02:45 59 L Laboratory Results 03/16/20 05:20 K this am 5.2, creat 0.9 (1) HTN (hypertension) Hypertension type: essential hypertension Qualified Code(s): I10 - Essential (primary) hypertension
[2020-03-16 14:31] LABS: BUN Creatinine Ratio 14.9 (10-20); Calcium 8.8 mg/dl (8.5-10.1); Creatinine Clr Calc Pharmacy 92.1 ml/min; Est GFR (African American) 96.3; Est GFR (Non-African American) 83.1; Potassium 5.5 mmol/L (3.5-5.1)
--- NOTE | 2020-03-16 16:57 | Electrocardiogram Report ---
Test Reason : Blood Pressure : / mmHG Vent. Rate : 057 BPM Atrial Rate : 057 BPM P-R Int : 130 ms QRS Dur : 078 ms QT Int : 352 ms P-R-T Axes : 039 027 046 degrees QTc Int : 342 ms Sinus bradycardia Otherwise normal ECG When compared with ECG of 26-NOV-2018 19:39, Vent. rate has decreased BY 46 BPM QT has shortened Confirmed by Adelso Busch ([id number]) on 03/16/2020 4:57:49 PM Referred By: Confirmed By:Binu Busch
--- NOTE | 2020-03-16 17:08 | Electrocardiogram Report ---
Test Reason : Blood Pressure : / mmHG Vent. Rate : 067 BPM Atrial Rate : 067 BPM P-R Int : 150 ms QRS Dur : 074 ms QT Int : 364 ms P-R-T Axes : 040 025 047 degrees QTc Int : 384 ms Normal sinus rhythm Normal ECG When compared with ECG of 15-MAR-2020 14:10, (unconfirmed) No significant change was found Confirmed by Adelso Busch ([id number]) on 03/16/2020 5:08:42 PM Referred By: REFERRED SELF Confirmed By:Binu Busch
[2020-03-16] MEDS: SODIUM BICARBONATE 8.4% 75 MEQ in DEXTROSE 5% 1,000 ML IV SCH (17:34)
[2020-03-16 17:52] LABS: Appearance Urine Clear (Clear); Bilirubin Urine Negative (Negative); Blood Urine Negative (Negative); Color Urine Yellow; Glucose Urine UA Negative (Negative); Ketones Urine Negative (Negative); Leukocyte Esterase Urine Negative (Negative); Nitrite Urine Negative (Negative); Protein Urine Negative (Negative); Specific Gravity Urine 1.013 (1.000-1.030); Urobilinogen Urine Negative (Negative); pH Urine 5.5 (4.5-7.5)
--- NOTE | 2020-03-16 18:45 | Hospitalist Progress Note ---
Date of Service March 16, 2020 Assessment & Plan (1) Acute hyperkalemia: Possible related to NSAID used in the setting of Lisinopril K on admission 6.4 EKG with some peaked T waves on admission Received NSS, calcium gluconate 1000mg IV, Insulin R 10 units IV, Dextrose 50ml, Kayexalate in the ER Potassium 5.2 today Lisinopril on hold Nephrology consult IVF changed to D5W with bicarb since elevated Will avoid any NSAIDs Continue monitor BMP (2) Chest pain, exertional: Has been having exertional CP & SOB x 3 weeks that resolves with rest. He was set up to have outpatient cardiac cath on 03/17/2020 at [facility] Outpatient echo, EF: 55-59% Troponin negative Cardiology on board and plan for cardiac cath in am Will make NPO after midnight Continue aspirin and metoprolol (3) Inappropriate sinus tachycardia: On beta rebecca Continue metoprolol (4) Diabetes type 1, controlled: On insulin pump HbA1c 6.1 Pharmacy consulted for glycemic management since fluid changed to D5W Continue monotor BS (5) HTN (hypertension): BP elevated Continue to hold lisinopril due to hyperkalemia Continue metoprolol and amlodipine 5mg started during the hospital course Continue monitor BP (6) Psoriatic arthritis: Follows with rheumatology - Dr Mathews On , takes on Saturdays Continue chronic hydrocodone/acetaminophen as needed DVT Prophylaxis SCDs Admission and Anticipated Discharge Date Admission Date: March 15, 2020 Subjective Pt was seen and examined Lying in bed with no distress Pt said that he does not have any chest pain He wants to go home and come back tomorrow for the cardiac cath Denies any chest pain, palpitation, dizziness and SOB Physical Exam Physical Exam: General- No acute distress Head- atraumatic Eyes- PERRL, EOMI, ENT- oropharynx clear Neck- supple, no JVD Lungs- clear to auscultation Heart- regular rhythm; no murmur Abdomen- normal bowel sounds, soft, nontender Extremities- no calf tenderness Neuro- alert, oriented x 3; PERRL, EOMI; no facial palsy; no dysarthria Skin- warm & dry Results & Data Results & Data ([facility]) Vital Signs (Past 12 Hours) Vital Signs Temp Pulse Pulse Resp BP Pulse Ox 03/16/20 16:47 68 03/16/20 16:00 37.1 C 72 18 151/77 H 96 03/16/20 11:00 36.9 C 66 18 164/74 H 97 03/16/20 08:00 67 03/16/20 07:30 36.7 C 69 18 154/75 H 96 (1) HTN (hypertension) Hypertension type: essential hypertension Qualified Code(s): I10 - Essential (primary) hypertension
[2020-03-16 18:53] LABS: Creatinine Urine Random 59.3 mg/dl
[2020-03-16 18:58] LABS: Total Protein Urine Random < 5.0 mg/dl (0-11.9)
[2020-03-16] MEDS ORDERED: PHARMACY GLYCEMIC MGMT CONSULT PRN (20:14)
[2020-03-16] MEDS ORDERED: ACETAMINOPHEN 325 MG TAB PO ONE (20:29)
[2020-03-16] MEDS ORDERED: SODIUM POLYSTYRENE 15 GM/60 ML 500ML BOTTLE PO ONE (20:30)
[2020-03-16] MEDS ORDERED: FUROSEMIDE 40 MG in SYRINGE 0 ML IV ONE (20:45)
[2020-03-17] MEDS: *CLOBETASOL*ORDER AWAITING ACTION SCH ×3 (00:01→13:25)
[2020-03-17] MEDS: SODIUM BICARBONATE 8.4% 75 MEQ in DEXTROSE 5% 1,000 ML IV SCH (07:04)
[2020-03-17 08:23] LABS: BUN Creatinine Ratio 14.6 (10-20); Calcium 9.3 mg/dl (8.5-10.1); Creatinine Clr Calc Pharmacy 96.8 ml/min; Est GFR (African American) 102.3; Est GFR (Non-African American) 88.3; Potassium 3.9 mmol/L (3.5-5.1)
[2020-03-17] MEDS: AMLODIPINE BESYLATE 5 MG TAB PO SCH (08:54)
[2020-03-17] MEDS: METOPROLOL SUCC 50MG EXT REL TAB PO SCH (08:54)
[2020-03-17] MEDS: FOLIC ACID 1 MG TAB PO SCH (08:55)
[2020-03-17] MEDS: ASPIRIN 81 MG ECTAB PO SCH (08:55)
[2020-03-17] MEDS: PANTOprazole 40 MG TAB PO SCH (08:55)
[2020-03-17] MEDS: HYDROCODONE/ACETAMOPHEN 5/325MG TAB PO PRN ×3 (10:17→22:57)
[2020-03-17] MEDS ORDERED: HEPARIN (PORCINE) 1000 UNIT/ML 10 ML (CATH LAB USE ONLY) ONE (11:14)
[2020-03-17] MEDS ORDERED: NiCARDipine HCL INJ 2.5 MG/ML 10 ML AMP ONE (11:14)
[2020-03-17] MEDS ORDERED: fentaNYL citrate 100 MCG/2 ML VIAL ONE (11:15)
[2020-03-17] MEDS ORDERED: MIDAZOLAM HCL 1 MG/ML 2ML VIAL ONE (11:15)
[2020-03-17] MEDS ORDERED: NITROGLYCERIN/D5W 100MCG/ML 20ML SYR ONE (11:19)
--- NOTE | 2020-03-17 11:29 | Nephrology Progress Note ---
Date of Service March 17, 2020 Assessment & Plan (1) Hyperkalemia: believe this was d/t recent introduction and uptitration of celebrex past month in setting of heavier ibuprofen use and chronic and I would consider obligate ACEI use (d/t DM/HTN). baseline OP creatinine 1.2-1.3 more recently; in house off of nsaids/acei and on ivf, he's already down to 0.9 from 1.3 on presentation and remains in this range this morning. While as an outpatient he technically does not meet criteria for CKD suspect he has some underlying renal dysfunction related to diabetic complications -lisinopril on hold as are nsaids - continue to hold until at least 48 hrs after cardiac cath pending reassessment of renal indices -ordered uacm/ACR> these show bland urine sediment and no proteinuria -After cardiac cath, he can discontinue low potassium diet -I have changed bicarbonate drip to saline 0.9% at 80 mL hourly for 1/2 L to run after his procedure; once this half liter is complete, from a renal standpoint he could be discharged provided potassium remains above 3.5 and less than 5.2 -Recheck basic metabolic panel ordered for 1400 today -I would be more than happy to see this patient in clinic to follow issues with potassium handling if he so wishes (2) HTN (hypertension): Systolic blood pressures improved today to 1 teens and 130s; currently aCEI on hold; on amlodipine 5 mg (just started) and metoprolol 100 mg XL q am; -cont these medications however would not continue amlodipine at discharge -ACEI as above (3) Chest pain, exertional: -defer to cardiology whether nsaids appropriate in this pt -- answer likely to depend on cath results; do note that the emergence of exertional chest pain coincides with increased NSAID burden Care coordinated w/ Dr Harding. Admission and Anticipated Discharge Date Admission Date: March 15, 2020 Subjective Seen on rounds this morning prior to cardiac catheterization. Uneventful night. No voiding concerns; no dyspnea; denies abdominal pain; stable chronic constipation and lower back pain; potassium this morning is 3.9. Review of Systems Review of Systems: All systems reviewed & are unremarkable except as noted in HPI & below Physical Exam Constitutional: well developed and well nourished; no acute distress On room air, maneuvers readily for exam without assist Eyes: EOM intact bilaterally ENMT: Ears: no external ear abnormality Nose: no external nose abnormality Mouth: + dry oral mucous membranes Neck: no nuchal rigidity Respiratory: normal respiratory effort Auscultation: lungs clear to auscultation bilaterally and + diminished lung sounds Cardiovascular: RRR, no murmur, no edema Gastrointestinal (Abdomen): Inspection/Auscultation: normal bowel sounds Percussion/Palpation: abdomen soft; abdomen nontender Musculoskeletal: Extremities: strength 5/5 throughout Skin: no rashes, warm and dry + pallor Neurologic: Moves all extremities, fluent speech, no tremor Psychiatric: A+Ox3, euthymic affect Results & Data ([facility]) Vital Signs (Past 12 Hours) Vital Signs Temp Pulse Pulse Resp BP Pulse Ox 03/17/20 11:01 83 17 03/17/20 09:34 73 03/17/20 07:22 36.7 C 71 20 138/73 94 03/17/20 04:00 36.5 C 71 20 123/73 95 03/16/20 23:41 70 Laboratory Results 03/16/20 05:20 03/17/20 07:42 (1) HTN (hypertension) Hypertension type: essential hypertension Qualified Code(s): I10 - Essential (primary) hypertension
[2020-03-17] MEDS ORDERED: SODIUM CHLORIDE 0.9% 500 ML IV SCH (11:30)
--- NOTE | 2020-03-17 12:00 | Cardiac Catheterization ---
Date of Service March 17, 2020 Cardiac Cath Report Cardiac Cath Report Procedure: 1. Coronary angiography History: This is a 54-year-old type I diabetic with a history of autonomic dysfunction. He was scheduled to have an outpatient cardiac catheterization due to exertional angina however, he had hyperkalemia on preoperative labs and was admitted early. He has been seen by nephrology and we followed their recommendations regarding IV fluids. He is now to have a cardiac catheterization. Procedure summary: After informed consent was obtained, the patient was taken to cardiac catheterization lab where he was prepped and draped in usual manner for right transradial approach. Preformed 5 Bhutanese diagnostic catheters were utilized for the coronary angiograms. Following the procedure the patient underwent coronary intervention. ACC data: Start time 11:22 AM End time 11:40 AM Opening aortic pressure 125/69 Closing aortic pressure 112/64 LV pressurevalve not crossed Sedation 1 mg intravenous Versed IV fluid 50 cc normal saline Contrast 65 cc Optiray Fluoroscopy time 2.6 minutes Radiation 738 mGy DAP 53.28 AUC score 7 Right dominant system Coronary angiography: Selective injections of the left coronary artery revealed the left main trunk to be patent. The left circumflex artery consists of 2 lateral marginal branches. The left circumflex artery has minor luminal irregularities but is widely patent. The LAD is diffusely diseased in its proximal and mid segment. It gives off a single large diagonal branch. 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 In the distal portion of the LAD there is a 50% short stenoses. Selective injections of the right coronary artery revealed to be large and dominant. In the proximal portion of the right coronary artery there is a subtotaled stenoses reaching 95% stenosis. Summary: The patient has a subtotal stenosis of the proximal right coronary artery. The left coronary system has nonobstructive disease of the LAD. Recommendations: Recommendations are for coronary intervention on the right coronary artery.
[2020-03-17] MEDS ORDERED: CLOPIDOGREL BISULFATE 300 MG TAB ONE (12:24)
--- NOTE | 2020-03-17 12:42 | Post Anesthesia Assessment ---
Date of Service March 17, 2020 Post Sedation Assessment Vital Signs Temp Pulse Pulse Resp BP Pulse Ox 03/17/20 11:01 83 17 03/17/20 09:34 73 03/17/20 07:22 98.1 F 71 20 138/73 94 03/17/20 04:00 97.7 F 71 20 123/73 95 03/16/20 23:41 70 03/16/20 23:00 98.1 F 94 H 18 118/87 97 03/16/20 21:20 89 03/16/20 19:48 98.2 F 75 16 159/88 H 96 03/16/20 16:47 68 03/16/20 16:00 98.8 F 72 18 151/77 H 96 Recovery Score Activity: Moves 4 extremities Respiration: Deep Breath/Cough Circulation: +/-20% PreAnes Value Consciousness: Fully Awake Oxygen Saturation: O2 needed for >90% Discharge Sedation Level of Care: Fast Track Phase II Post Sedation Plan On clinical assessment, the patient appears to have tolerated the sedation without complications. Patient is recovering as anticipated. Patient will continue to be monitored by nursing and may be discharged when sedation discharge criteria are met per below protocol. Upon Completions of procedure up to 15 minutes continue every 5 minute vital signs and the P.A.R. score; then discharge to a Phase I or Fast Track to Phase II per the following guidelines: * Discharge Patient to appropriate Phase II area if PAR is 8 or greater or return to pre- procedure baseline. The post - procedure orders will be as directed. * If PAR score is less than 8 or not return to pre-procedure baseline then patient will follow Phase I monitoring till PAR is reached for Phase II. The Phase I may be done in procedure room or may call to secure a Phase I area. * If naloxone or flumazenil are used for reversal, hold in Phase I for continued monitoring from when last reversal dose was given for a minimum of 60 minutes or longer pending the nurse and/or physician discretion of patient condition before discharge to Phase II. Please call the Sedation Physician to re-evaluate and complete post-note for discharge to Phase II area. Do NOT discharge from procedure sedation or Phase 1 until post- sedation evaluation note is complete by procedure /sedation MD Sedation Discharge Instructions to be given to the patient at discharge to home.
[2020-03-17] MEDS ORDERED: SODIUM CHLORIDE 0.9% 1000ML 1,000 ML IV SCH (12:45)
--- NOTE | 2020-03-17 12:49 | Cardiac Catheterization ---
[facility] Data: Workers Compensation Specialist Cardiac Status Clinical evaluation leading to the procedure CAD Presenation: Unstable angina Anginal Classification: CCS III Heart Failure: No Cardiogenic Shock within 24 Hours: No Cardiac Arrest within 24 Hours: No Imaging Studies Past 6 Months: Yes Stress Studies Past 6 Months: No Diagnostic Physicians Name: Adelso Zavala MD Status: Elective Closure Device Percutaneous Entry Location: Radial Closure Device: Radial Band Recommendations: PCI without planned CABG Lesion Segment Name: proximal RCA Culprit Artery: Yes Stenosis Prior to Rx (%): 80 Chronic Total Occlusion: No IVUS: No FFR: No Pre-Procedure KAILEE Flow: 3 Previously Treated Lesion: No Lesion Complexity: Non-High/Non-C Lesion Length (mm): 18 Thrombus Present: No Bifurcation Lesion: No Guidewire Across Lesion: Stenosis Post-Procedure (%): 0 Post-Procedure KAILEE Flow: 3 Devices(s) Deployed: Yes Yes Intraprocedure Events Significant Disection: No Perforation: No Cardiac Cath Procedure Full Procedure Date March 17, 2020 Pre-Procedure Diagnosis Pre-Procedure Diagnosis: Acute Coronary Syndrome AUC Score AUC Score: 7 Post-Procedure Diagnosis Post-Procedure Diagnosis: Severe CAD and Successful PCI Procedure(s) Performed Procedure(s) Performed: Coronary Angiography and Drug Eluting Stent Epic Manager Adelso Zavala MD [employer] Molder(s) Swathi Estimated Blood Loss Estimated Blood Loss: 15 Medication(s) Medication(s): Clopidogrel, Fentanyl, Heparin, Nicardipine, Nitroglycerin and Versed Summary of Findings Indication: Unstable angina Access: 6 Fr right radial artery Catheters: 5 Fr JR4 guide Findings: For full details of patient's coronary angiography please see cath report dictated by Dr. Shepherd. Briefly, patient found to have severe single vessel disease with a 80% proximal to mid RCA stenosis. Decision to proceed with PCI. -- PCI -- Antithrombotic therapy: Heparin, clopidogrel Procedure: RCA cannulated with 5 Fr JR4 guide BMW wire passed across lesion into distal vessel Proximal to mid mid RCA lesion predilated with 3.0 compliant balloon Dilated lesion stented with 4.0 x 22 mm Tyron drug-eluting stent Stent post-dilated with 4.5 noncompliant balloon IC vasodilators administered for spasm Post procedure KAILEE 3 flow, stent well expanded with minimal residual stenosis and no apparent cardiac complications. Arterial Closure: TR band Summary: 1. Successful PCI of proximal to mid RCA with single drug-eluting stent (4.0 x 22 mm Tyron; postdilated with 4.5 NC). Recommendations: To PCU for continued monitoring Loaded with clopidogrel 600 mg in Workers Compensation Specialist Continue dual-antiplatelet therapy for at least 1 year Continue statin, and ASCVD risk factor modification Consult cardiac Rehab Hemodynamics Rest Ao:: 108/63/85 Final Ao: 142/72/100 LV: -- Recommendations Recommendations: PCI without planned CABG Specimens Specimens: None Radiation Exposure (mGy) 1883 Contrast (mls) 95 Drains Drains: None Anesthesia Moderate Procedural Complication(s) None Disposition PCU I attest to the content of the Intraoperative Record and any orders documented therein. Any exceptions are noted below. [facility] Card Cath Procedure Codes Moderate Sedation Procedure 1: Sedation/Anesthesia: 30246 Mod Sedation by a different physician ;Init15 Min Child Age 5&Up Stenting Procedure 1: Cardiovascular Stent Procedures: 25464 Perc transcatheter placement of intracoronary stent(s), with ang PG Care Time/CCT Total # of Minutes Spent Total Time Spent with Patient: Total time spent is greater than 50% in coordination of care (as documented) at patient's floor/unit and/or counseling patient:
--- NOTE | 2020-03-17 14:11 | Pharmacy Report ---
Glycemic Control Consultation - Date of Service March 17, 2020 - Scope Scope: Glycemic Pharmacist consulted for glycemic control and to write orders per [facility] inpatient glycemic control protocol. - Objective Weight: 90.5 kg Accuchecks BSG (last 24hrs): 03/16/20 03/16/20 03/17/20 13:34 16:43 07:32 Glucose 164 H POC Glucose 118 H 127 H 03/17/20 03/17/20 07:42 12:52 Glucose 135 H POC Glucose 142 H Laboratory Data (last 24hrs): 03/16/20 03/17/20 13:34 07:42 Potassium 5.5 H 3.9 D Carbon Dioxide 22 27 Anion Gap 4.0 6.0 Creatinine 1.03 0.98 Est Cr Clr Drug Dosing 92.1 96.8 HbA1c: Hemoglobin A1c 6.1 % (4.5-5.6) H 03/16/20 05:20 - Recent Pertinent Medications Outpatient Anti-diabetic Regimen: * insulin pump/novolog 0.5 units/hr CR 15 * A1c = 6.1% 03/16 Risk Factors for Insulin Resistance: * Diet: t1dm - Assessment & Plan Assessment & Plan: ASSESSMENT: * Type 1 diabetic managed on novolog pump at home. Pharmacy consulted for glycemic management * Spoke with patient and he is okay with managing pump himself while inpatient - he is NPO this morning for procedure but patient informs me that he feels comfortable adjusting pump if necessary. We talked about how he is getting IVFs with dextrose so he plans on keeping a current basal rate and monitoring while NPO * Now postop and diet is ordered / plan to continue pump at normal home settings PLAN FOR INPATIENT GLYCEMIC CONTROL: * Continue insulin pump * Please note that the plan above was derived based on current level of insulin resistance and hospital stress. These recommendations are appropriate for inpatient admission only. Plan of care upon discharge will need to be reassessed to avoid potential outpatient hypo/hyperglycemia. Thank you.
[2020-03-17 15:25] LABS: BUN Creatinine Ratio 11.9 (10-20); Calcium 9.2 mg/dl (8.5-10.1); Creatinine Clr Calc Pharmacy 81.1 ml/min; Est GFR (African American) 82.6; Est GFR (Non-African American) 71.3; Potassium 4.3 mmol/L (3.5-5.1)
--- NOTE | 2020-03-17 18:23 | Hospitalist Progress Note ---
Date of Service March 17, 2020 Assessment & Plan (1) Acute hyperkalemia: Possible related to NSAID used in the setting of Lisinopril K on admission 6.4 EKG with some peaked T waves on admission Received NSS, calcium gluconate 1000mg IV, Insulin R 10 units IV, Dextrose 50ml, Kayexalate in the ER Potassium 4.1 today Continue to hold Lisinopril, can be resume 48hr post cardiac cath Nephrology on board Case discussed with net lead developer and recommended to change IVF to NSS and run to half liter after cardiac cath Continue to avoid any NSAIDs Continue monitor BMP (2) Chest pain, exertional: Has been having exertional CP & SOB x 3 weeks that resolves with rest. He was set up to have outpatient cardiac cath on 03/17/2020 at [facility] Outpatient echo, EF: 55-59% Troponin negative Cardiology on board S/P cardiac cath revealed proximal portion of the right coronary artery with subtotaled stenoses reaching 95% stenosis. Successful PCI of proximal to mid RCA with single drug-eluting stent (4.0 x 22 mm [place]; postdilated with 4.5 NC) by Dr. Zavala Continue dual-antiplatelet therapy for at least 1 year with aspirin and plavix Continue statin and Metoprolol Cardiac Rehab referral on discharge Continue monitor in tele (3) Inappropriate sinus tachycardia: On beta rebecca Continue metoprolol (4) Diabetes type 1, controlled: On insulin pump HbA1c 6.1 Pharmacy consulted for glycemic management since fluid changed to D5W Continue monotor BS (5) HTN (hypertension): BP elevated Continue to hold lisinopril due to hyperkalemia Continue metoprolol and amlodipine 5mg started during the hospital course Nephrology recommended to resume lisinopril after 48hr post cath Will D/C amlodipine on discharge Continue monitor BP (6) Psoriatic arthritis: Follows with rheumatology - Dr Mathews On , takes on Saturdays Continue chronic hydrocodone/acetaminophen as needed DVT Prophylaxis SCDs Disposition Plan to discharge tomorrow Admission and Anticipated Discharge Date Admission Date: March 15, 2020 Subjective Pt was seen and examined Sitting in bed with no distress working on his computer He had cardiac cath done with successful stent placed today Denies any chest pain, palpitation, dizziness and SOB Physical Exam Physical Exam: General- No acute distress Head- atraumatic Eyes- PERRL, EOMI, ENT- oropharynx clear Neck- supple, no JVD Lungs- clear to auscultation Heart- regular rhythm; no murmur Abdomen- normal bowel sounds, soft, nontender Extremities- no calf tenderness, right wrist/radial area with no hematoma Neuro- alert, oriented x 3; PERRL, EOMI; no facial palsy; no dysarthria Skin- warm & dry Results & Data Results & Data ([facility]) Vital Signs (Past 12 Hours) Vital Signs Temp Pulse Pulse Resp BP BP Pulse Ox 03/17/20 18:00 76 20 150/79 H 95 03/17/20 17:00 71 20 145/78 H 94 03/17/20 15:59 69 20 121/66 98 03/17/20 14:58 74 20 123/76 95 03/17/20 14:30 72 20 146/86 H 94 03/17/20 14:00 78 136/83 98 03/17/20 13:45 86 20 133/83 95 03/17/20 13:30 87 20 128/80 03/17/20 13:15 78 20 137/81 95 03/17/20 13:00 36.4 C L 74 20 148/85 H 98 03/17/20 11:01 83 17 03/17/20 09:34 73 03/17/20 07:22 36.7 C 71 20 138/73 94 (1) HTN (hypertension) Hypertension type: essential hypertension Qualified Code(s): I10 - Essential (primary) hypertension
[2020-03-18] MEDS: *CLOBETASOL*ORDER AWAITING ACTION SCH ×2 (01:57→07:14)
[2020-03-18 06:36] LABS: BUN Creatinine Ratio 17.3 (10-20); Calcium 9.1 mg/dl (8.5-10.1); Creatinine Clr Calc Pharmacy 104.2 ml/min; Est GFR (African American) 111.9; Est GFR (Non-African American) 96.6; Potassium 3.8 mmol/L (3.5-5.1)
[2020-03-18] MEDS: HYDROCODONE/ACETAMOPHEN 5/325MG TAB PO PRN (07:20)
[2020-03-18] MEDS: ASPIRIN 81 MG ECTAB PO SCH (07:21)
[2020-03-18] MEDS: FOLIC ACID 1 MG TAB PO SCH (07:21)
[2020-03-18] MEDS: METOPROLOL SUCC 50MG EXT REL TAB PO SCH (07:21)
[2020-03-18] MEDS: PANTOprazole 40 MG TAB PO SCH (07:22)
[2020-03-18] MEDS: AMLODIPINE BESYLATE 5 MG TAB PO SCH (07:22)
[2020-03-18] MEDS ORDERED: CLOPIDOGREL BISULFATE 75 MG TAB PO SCH (09:00)
--- NOTE | 2020-03-18 09:54 | Cardiology Progress Note ---
Date of Service March 18, 2020 Assessment & Plan (1) Acute hyperkalemia: (2) Chest pain, exertional: (3) Inappropriate sinus tachycardia: (4) Psoriatic arthritis: (5) Diabetes type 1, controlled: The patient can be discharged to outpatient follow-up today. His renal function and electrolytes look good today. He has a previously scheduled follow-up appointment with Dr. Schreiber in 2 weeks which he should keep. Subjective The patient had an uneventful night. All questions were answered. Review of Systems Review of Systems: All systems reviewed & are unremarkable except as noted in HPI & below Nothing additional to add Physical Exam Physical Exam: General: no acute distress and stated age Head: normocephalic, no masses, lesions, tenderness or abnormalities Eyes: conjunctiva are pink and non-injected, sclera clear Neck: supple, no adenopathy, no bruits, normal jugular venous pulse, no hepatojugular reflux Chest: normal shape and normal respiratory effort Lungs: clear to auscultation and percussion Cardiac Exam: - regular rate & rhythm, no murmurs gallops or rubs - normal S1, normal S2 Pulses: 2(+) throughout Abdomen: abdomen soft, non-tender, no abnormal masses and no hepatosplenomegaly Musculoskeletal: no gait disturbance, no joint inflammation, no deforming arthritis Extremities: Cath site looks good Neuro: grossly normal exam Results & Data Vital Signs (Past 12 Hours) Vital Signs Temp Pulse Pulse Resp BP BP Pulse Ox 03/18/20 08:06 36.7 C 71 18 159/92 H 94 03/18/20 04:00 36.4 C L 74 17 138/64 97 03/17/20 23:57 36.9 C 77 17 162/92 H 96 03/17/20 22:30 65 Laboratory Results Laboratory Results - last 24 hr 03/17/20 03/17/20 03/17/20 12:52 14:39 16:27 Sodium 140 Potassium 4.3 Chloride 107 Carbon Dioxide 27 Anion Gap 6.0 BUN 14 Creatinine 1.17 Est Cr Clr Drug Dosing 81.1 Est GFR ( Amer) 82.6 Est GFR (Non-Af Amer) 71.3 BUN/Creatinine Ratio 11.9 Glucose 185 H POC Glucose 142 H 171 H Calcium 9.2 03/17/20 03/18/20 03/18/20 20:43 05:20 07:35 Sodium 142 Potassium 3.8 Chloride 110 H Carbon Dioxide 26 Anion Gap 6.0 BUN 16 Creatinine 0.91 Est Cr Clr Drug Dosing 104.2 Est GFR ( Amer) 111.9 Est GFR (Non-Af Amer) 96.6 BUN/Creatinine Ratio 17.3 Glucose 80 POC Glucose 137 H 93 Calcium 9.1 Medications Administered Current Inpatient Medications Acetaminophen (Tylenol) 650 mg PO Q4H PRN PRN Reason: Pain or Fever Stop: 04/14/20 18:58 Hydrocodone Bitart/Acetaminophen ([place] 5/325) 1 tab PO Q6H PRN PRN Reason: Pain Stop: 03/29/20 19:10 Last Admin: 03/18/20 07:20 Dose: 1 tab Documented by: Amlodipine Besylate ([facility]asc) [facility] Stop: 04/14/20 19:59 Last Admin: 03/18/20 07:22 Dose: 5 mg Documented by: Aspirin (Ecotrin Ectab) 81 [facility] Stop: 04/15/20 08:59 Last Admin: 03/18/20 07:21 Dose: 81 mg Documented by: Clopidogrel Bisulfate (Plavix) [facility] Stop: 04/17/20 08:59 Last Admin: 03/18/20 07:23 Dose: 75 mg Documented by: Dextrose (Dextrose 50%) 25 - 50 ml IV UD PRN; Protocol PRN Reason: Hypoglycemia Protocol Stop: 04/14/20 18:58 Folic Acid (Folvite) 1 mg PO DAILY [facility] Stop: 04/15/20 08:59 Last Admin: 03/18/20 07:21 Dose: 1 mg Documented by: Glucagon (Glucagen) 1 mg SQ UD PRN; Protocol PRN Reason: Hypoglycemia Protocol Stop: 04/14/20 18:58 Glucose (Dex4 Glucose) 4 - 8 tabs PO UD PRN; Protocol PRN Reason: Hypoglycemia Protocol Stop: 04/14/20 18:58 Glucose (Glucose 40%) 15 - 30 gm PO UD PRN; Protocol PRN Reason: Hypoglycemia Protocol Stop: 04/14/20 18:58 Insulin Aspart (Novolog Insulin Pump) 1 ea N/A UD [facility] Stop: 04/14/20 19:59 Metoprolol Succinate (Toprol Xl) 100 mg PO QAM [facility] Stop: 04/15/20 08:59 Last Admin: 03/18/20 07:21 Dose: 100 mg Documented by: Miscellaneous (Carbohydrates For Hypoglycemia) 15 - 30 gm PO UD PRN PRN Reason: Hypoglycemia Protocol Stop: 04/14/20 18:58 Miscellaneous (Order Awaiting Action) 1 ea N/A QS [facility] Stop: 04/15/20 00:00 Last Admin: 03/18/20 07:14 Dose: Not Given Documented by: Miscellaneous Information (Consult Glycemic Management Pharmacy) 1 ea N/A UD PRN PRN Reason: Consult Stop: 04/15/20 20:13 Pantoprazole Sodium (Protonix) 40 mg PO QAM [facility] Stop: 04/15/20 08:59 Last Admin: 03/18/20 07:22 Dose: 40 mg Documented by:
--- NOTE | 2020-03-18 10:04 | Hospitalist Progress Note ---
Date of Service March 18, 2020 Assessment & Plan (1) Acute hyperkalemia: Possible related to NSAID used in the setting of Lisinopril K on admission 6.4 EKG with some peaked T waves on admission Received NSS, calcium gluconate 1000mg IV, Insulin R 10 units IV, Dextrose 50ml, Kayexalate in the ER Potassium 0.9 today Continue to hold Lisinopril today Nephrology on board Recommended to resume lisinopril tomorrow Continue to avoid any NSAIDs Check BMP in 1 week (2) Chest pain, exertional: Has been having exertional CP & SOB x 3 weeks that resolves with rest. He was set up to have outpatient cardiac cath on 03/17/2020 at [facility] [place] Outpatient echo, EF: 55-59% Troponin negative Cardiology on board S/P cardiac cath revealed proximal portion of the right coronary artery with subtotaled stenoses reaching 95% stenosis. Successful PCI of proximal to mid RCA with single drug-eluting stent (4.0 x 22 mm [place]; postdilated with 4.5 NC) by Dr. Zavala Continue dual-antiplatelet therapy for at least 1 year with aspirin and plavix Continue Metoprolol Cholesterol 118 and LDL 54 Case discussed with cardiology about statin therapy Dr. Shepherd recommended to check Lipid panel outpatient and cardiology will decide to start on statin on discharge Cardiac Rehab referral on discharge Ok from cardiology standpoint to discharge home today (3) Inappropriate sinus tachycardia: On beta rebecca Continue metoprolol (4) Diabetes type 1, controlled: On insulin pump HbA1c 6.1 on 03/16/20 Pharmacy consulted for glycemic management since fluid changed to D5W BS stable Continue monitor BS (5) HTN (hypertension): BP elevated Continue to hold lisinopril due to hyperkalemia Continue metoprolol and amlodipine 5mg started during the hospital course Nephrology recommended to resume lisinopril after 48hr post cath Will D/C amlodipine on discharge Continue monitor BP (6) Psoriatic arthritis: Follows with rheumatology - Dr Mathews On En, takes on Saturdays Continue chronic hydrocodone/acetaminophen as needed DVT Prophylaxis SCDs Disposition Will discharge home today Admission and Anticipated Discharge Date Admission Date: March 15, 2020 Subjective Pt was seen and examined Sitting in bed with no distress Pt said that he feels fine He said that he had a good night Denies any chest pain, palpitation, dizziness and SOB Physical Exam Physical Exam: General- No acute distress Head- atraumatic Eyes- PERRL, EOMI, ENT- oropharynx clear Neck- supple, no JVD Lungs- clear to auscultation Heart- regular rhythm; no murmur Abdomen- normal bowel sounds, soft, nontender Extremities- no calf tenderness, right wrist/radial area with no hematoma Neuro- alert, oriented x 3; PERRL, EOMI; no facial palsy; no dysarthria Skin- warm & dry Results & Data Results & Data ([facility]) Vital Signs (Past 12 Hours) Vital Signs Temp Pulse Pulse Resp BP BP Pulse Ox 03/18/20 08:06 36.7 C 71 18 159/92 H 94 03/18/20 04:00 36.4 C L 74 17 138/64 97 03/17/20 23:57 36.9 C 77 17 162/92 H 96 03/17/20 22:30 65 (1) HTN (hypertension) Hypertension type: essential hypertension Qualified Code(s): I10 - Essential (primary) hypertension
--- NOTE | 2020-03-19 09:19 | Discharge Summary ---
Date of Service March 18, 2020 Admission HPI Per Admitting Provider Pt is 54 y/o M with PMH DM I on insulin pump, inappropriate sinus tachycardia on beta rebecca, h/o orthostatic hypotension with dysautonomia, HTN, dyslipidemia, psoriasis, arthritis presented to ER for abnormal labs including hyperkalemia. Pt was seen by outpatient cardiology yesterday for exertional CP & SOB x 3 weeks that resolves with rest. He was set up to have outpatient cardiac cath on 03/17/2020 at [facility]. Yesterday had pre-op labs with K: 6.5. Repeat labs today with K:6 and was referred to ER. Pt reports chronic joint pain. States past several days has been having some muscle cramps to lower legs. Denies diet high in potassium. Has been on lisinopril 10mg daily for a long time and reports approx 1.5 months ago with elevated BP's and was increased to 20mg daily however pt was experiencing orthostatic hypotension and has been taking 10mg daily for approx 3 weeks. Denies any current CP or SOB. Denies fever/chills, diaphoresis, N/V/D/C, SINGLETARY, dizziness, syncope, vision changes, neck pain, orthopnea, cough, sore throat, choking, otalgia, rhinorrhea, abdominal pain, paresthesias, extremity weakness, extremity edema, rashes, urinary symptoms. Admission Exam Per Admitting Provider General: no distress, WDWN Head: normocephalic, atraumatic Eyes: PERRL, EOM's intact, conjunctiva non-injected, anicteric ENT: normal inspection external ears, nose, mucous membranes moist Neck: supple, trachea midline Lungs: clear, no respiratory distress, no wheezing/rhonchi/rales CV: RRR, no murmur, no pretibial edema Abd: normal BS, soft, non-tender Ext: no cyanosis, no calf tenderness Neuro: A&O x 3, no focal deficits noted, normal affect Skin: warm, dry Principal Diagnosis Acute hyperkalemia Chest pain, exertional Inappropriate sinus tachycardia Diabetes type 1, controlled HTN (hypertension) Psoriatic arthritis Discharge Exam General- No acute distress Head- atraumatic Eyes- PERRL, EOMI, ENT- oropharynx clear Neck- supple, no JVD Lungs- clear to auscultation Heart- regular rhythm; no murmur Abdomen- normal bowel sounds, soft, nontender Extremities- no calf tenderness, right wrist/radial area with no hematoma Neuro- alert, oriented x 3; PERRL, EOMI; no facial palsy; no dysarthria Skin- warm & dry Discharge Data Allergies Allergy/AdvReac Type Severity Reaction Status Date / Time Sulfa (Sulfonamide Allergy Intermediate RASH Verified 03/15/20 15:58 Antibiotics) milk AdvReac Intermediate STOMACH Verified 03/15/20 15:58 UPSET ANTIVIRALS AdvReac Severe KIDNEY Uncoded 03/15/20 15:58 FAILURE Consultations 03/15/20 16:51 ED Decision to Admit Stat 03/16/20 08:00 Consult Cardiology Routine 03/16/20 08:17 Consult Nephrology Routine 03/17/20 12:44 Consult Cardiac Rehabilitation Routine Procedures Performed Operation Date: 03/16/20 08:00 <No data on this case meets the specified criteria> Operation Date: 03/17/20 08:00 Actual Procedures p Cineradiography w/Routine Exam - Kendrick Zavala MD s Cath, Coronaries ONLY (no LV) - DO francisco Benedict Drug Eluting Stent SGl Vessel - Kendrick Zavala MD Ordered Studies 03/17/20 06:37 CL Cath Imgs for PACS use only Routine XR chest 1V portable HISTORY: 54 years-old Male Chest Pain acute atypical chest pain COMPARISON: Chest radiograph 12/22/2018 TECHNIQUE: AP view of the chest FINDINGS: Cardiac mediastinal and hilar silhouettes are within normal limits. No pneumothorax, pleural effusion, airspace consolidation or overt pulmonary edema. Bones appear grossly intact. IMPRESSION: No acute process. ACT 112: Negative or not required by law. The above report was generated using voice recognition software. It may contain grammatical, syntax or spelling errors. Electronically signed by: Perry Castaneda M.D. 03/15/2020 4:26 PM Dictated: 03/15/201612 Transcribed: 03/15/201612 cc: Linda Schreiber DO~ DICTATED BY: Adelso Zavala MD ACC Data: Web Offset Press Feeder Cardiac Status Clinical evaluation leading to the procedure CAD Presenation: Unstable angina Anginal Classification: CCS III Heart Failure: No Cardiogenic Shock within 24 Hours: No Cardiac Arrest within 24 Hours: No Imaging Studies Past 6 Months: Yes Stress Studies Past 6 Months: No Diagnostic Physicians Name: Adelso Zavala MD Status: Elective Closure Device Percutaneous Entry Location: Radial Closure Device: Radial Band Recommendations: PCI without planned CABG Lesion Segment Name: proximal RCA Culprit Artery: Yes Stenosis Prior to Rx (%): 80 Chronic Total Occlusion: No IVUS: No FFR: No Pre-Procedure KAILEE Flow: 3 Previously Treated Lesion: No Lesion Complexity: Non-High/Non-C Lesion Length (mm): 18 Thrombus Present: No Bifurcation Lesion: No Guidewire Across Lesion: Stenosis Post-Procedure (%): 0 Post-Procedure KAILEE Flow: 3 Devices(s) Deployed: Yes Yes Intraprocedure Events Significant Disection: No Perforation: No Cardiac Cath Procedure Full Procedure Date March 17, 2020 Pre-Procedure Diagnosis Pre-Procedure Diagnosis: Acute Coronary Syndrome AUC Score AUC Score: 7 Post-Procedure Diagnosis Post-Procedure Diagnosis: Severe CAD and Successful PCI Procedure(s) Performed Procedure(s) Performed: Coronary Angiography and Drug Eluting Stent Customer Account Administrator Adelso Zavala MD Material Expediter(s) Swathi Estimated Blood Loss Estimated Blood Loss: 15 Medication(s) Medication(s): Clopidogrel, Fentanyl, Heparin, Nicardipine, Nitroglycerin and Versed Summary of Findings Indication: Unstable angina Access: 6 Fr right radial artery Catheters: 5 Fr JR4 guide Findings: For full details of patient's coronary angiography please see cath report dictated by Dr. Shepherd. Briefly, patient found to have severe single vessel disease with a 80% proximal to mid RCA stenosis. Decision to proceed with PCI. -- PCI -- Antithrombotic therapy: Heparin, clopidogrel Procedure: RCA cannulated with 5 Fr JR4 guide BMW wire passed across lesion into distal vessel Proximal to mid mid RCA lesion predilated with 3.0 compliant balloon Dilated lesion stented with 4.0 x 22 mm [place] drug-eluting stent Stent post-dilated with 4.5 noncompliant balloon IC vasodilators administered for spasm Post procedure KAILEE 3 flow, stent well expanded with minimal residual stenosis and no apparent cardiac complications. Arterial Closure: TR band Summary: 1. Successful PCI of proximal to mid RCA with single drug-eluting stent (4.0 x 22 mm Tyron; postdilated with 4.5 NC). Recommendations: To PCU for continued monitoring Loaded with clopidogrel 600 mg in Web Offset Press Feeder Continue dual-antiplatelet therapy for at least 1 year Continue statin, and ASCVD risk factor modification Consult cardiac Rehab Hemodynamics Rest Ao:: 108/63/85 Final Ao: 142/72/100 LV: -- Recommendations Recommendations: PCI without planned CABG Specimens Specimens: None Radiation Exposure (mGy) 1883 Contrast (mls) 95 Drains Drains: None Anesthesia Moderate Procedural Complication(s) None Disposition PCU I attest to the content of the Intraoperative Record and any orders documented therein. Any exceptions are noted below. [facility] Card Cath Procedure Codes Moderate Sedation Procedure 1: Sedation/Anesthesia: 57286 Mod Sedation by a different physician ;Init15 Min Child Age 5&Up Stenting Procedure 1: Cardiovascular Stent Procedures: 16909 Perc transcatheter placement of intracoronary stent(s), with ang PG Care Time/CCT Total # of Minutes Spent Total Time Spent with Patient: Total time spent is greater than 50% in coordination of care (as documented) at patient's floor/unit and/or counseling patient: Signed By:<Electronically signed by Kendrick Zavala MD>{f rep sign date/time1] Created/Dictated: 03/17/20 1242 Transcribed: 03/17/20 1242Transcriptionist: GERARDO Hospital Course (1) Acute hyperkalemia: Possible related to NSAID used in the setting of Lisinopril K on admission 6.4 EKG with some peaked T waves on admission Received NSS, calcium gluconate 1000mg IV, Insulin R 10 units IV, Dextrose 50ml, Kayexalate in the ER Potassium 0.9 today Continue to hold Lisinopril today Nephrology on board Recommended to resume lisinopril tomorrow Continue to avoid any NSAIDs Check BMP in 1 week (2) Chest pain, exertional: Has been having exertional CP & SOB x 3 weeks that resolves with rest. He was set up to have outpatient cardiac cath on 03/17/2020 at [facility] Outpatient echo, EF: 55-59% Troponin negative Cardiology on board S/P cardiac cath revealed proximal portion of the right coronary artery with subtotaled stenoses reaching 95% stenosis. Successful PCI of proximal to mid RCA with single drug-eluting stent (4.0 x 22 mm Tyron; postdilated with 4.5 NC) by Dr. Zavala Continue dual-antiplatelet therapy for at least 1 year with aspirin and plavix Continue Metoprolol Cholesterol 118 and LDL 54 Case discussed with cardiology about statin therapy Dr. Shepherd recommended to check Lipid panel outpatient and cardiology will decide to start on statin on discharge Cardiac Rehab referral on discharge Ok from cardiology standpoint to discharge home today (3) Inappropriate sinus tachycardia: On beta rebecca Continue metoprolol (4) Diabetes type 1, controlled: On insulin pump HbA1c 6.1 on 03/16/20 Pharmacy consulted for glycemic management since fluid changed to D5W BS stable Continue monitor BS (5) HTN (hypertension): BP elevated Continue to hold lisinopril due to hyperkalemia Continue metoprolol and amlodipine 5mg started during the hospital course Nephrology recommended to resume lisinopril after 48hr post cath Will D/C amlodipine on discharge Continue monitor BP (6) Psoriatic arthritis: Follows with rheumatology - Dr Mathews On , takes on Saturdays Continue chronic hydrocodone/acetaminophen as needed DVT Prophylaxis SCDs Disposition Will discharge home today Total Time Total Time Spent Total Time Spent (In Minutes): 35 minutes Total Time Includes: Examination of the Patient, Discharge Planning, Medication Reconciliation, Communication With Other Providers and Other Discharge Plan Discharge Items Patient Disposition: Home - Self-Care Reason For Visit: HYPERKALEMIA Discharge Diagnosis: Acute hyperkalemia Chest pain, exertional Inappropriate sinus tachycardia Diabetes type 1, controlled HTN (hypertension) Psoriatic arthritis Condition on Discharge: Good Activity: As commented below Non-emergency contact: Primary Care Provider, Customer Account Administrator and Php Lamp Developer Call non-emergency contact if: you have any medication questions Follow-up/Referrals: Linda Schreiber DO [Primary Care Provider] - Diet: Carb Count or DM1 Addtl Attending Provider Instructions: Follow up with your primary care provider Dr. Linda Schreiber on 03/20 @ 10:20 AM Follow up with cardiology Dr. Schreiber on 03/28 @ 11:45 AM Follow up with nephrology as needed Check BMP in 1 week to monitor electrolytes Check cholesterol level and guest attendant will decide to add you on a cholesterol agents Ok to resume Lisinopril tomorrow Continue dual antiplatelet therapy with aspirin and plavix for at least 1 year Avoid any NSAIDS therapy such as (Motrin, aleve, Naproxen, Ibuprofen, Celebrex, ...) Monitor for any abnormal bleeding and seek medical attention if bleeding occurs Your physician will refer you to cardiac rehab Keep the area for the cardiac cath clean and dry to avoid any infection Do not use creams, lotions or ointment on the wound site Do not take a bath, tub soak, go in a Jacuzzi, or swim in a pool or patel for one week after the procedure. Do not participate in strenuous activities for 3 days after the procedure. Gradually increase your activities until you reach your normal activity level within two days after the procedure. Avoid heavy lifting (more than 10 pounds) and pushing or pulling heavy objects for the first 5 days after the procedure. Pending Studies at Discharge: No Stand-Alone Forms: My [facility], Smoking Cessation Medications and DC Order Prescriptions: New clopidogrel 75 mg Tablet 75 mg PO QAM Qty: 30 RF: 0 nitroglycerin 0.4 mg tablet, sublingual 0.4 mg sublingual UD Qty: 30 RF: 0 Continued lisinopril 20 mg tablet 10 mg PO QAM RF: 0 metoprolol succinate 100 mg tablet extended release 24 hr 100 mg PO QAM RF: 0 clobetasol 0.05 % cream 1 applic TOPICAL BID PRN (Reason: Psoriasis Flares) RF: 0 lorazepam 1 mg tablet 0.5 - 1 mg PO DIRECTED PRN (Reason: Prior to Eye Injection) RF: 0 Enbrel SureClick 50 mg/mL (1 mL) pen injector 50 mg SUBCUT WK RF: 0 pantoprazole 20 mg tablet,delayed release (DR/EC) 20 mg PO QAM RF: 0 insulin aspart U-100 [Novolog U-100 Insulin aspart] 100 unit/mL solution See Rx Instructions .ROUTE .COMPLEX RF: 0 erythromycin-benzoyl peroxide 3-5 % gel 1 applic TOPICAL DAILY RF: 0 folic acid 1 mg Tablet 1 mg PO DAILY RF: 0 hydrocodone-acetaminophen [[place]] 5-325 mg Tablet 1 tab PO Q6H PRN (Reason: Pain) RF: 0 aspirin [Aspir-81] 81 mg Tablet,Delayed Release (Dr/Ec) 81 mg PO QAM RF: 0 sildenafil 100 mg Tablet 100 mg PO DAILY PRN (Reason: Erectile Dysfunction) RF: 0 albuterol sulfate [Ventolin HFA] 90 mcg/actuation Hfa Aerosol Inhaler 2 puff INHALATION DIRECTED PRN (Reason: Shortness Of Breath Or Wheezing) RF: 0 Discontinued celecoxib 200 mg capsule 200 mg PO .HOLD RF: 0 Discharge Orders: Discharge Order (Routine); Ordered 03/18/20 Ordered By: Devorah Harding Admission Data Admit Date/Time: 03/15/20 17:31 Attending Provider: Devorah Harding Admit Provider: Dandre Nichols Primary Care Provider: Linda Schreiber Other Providers: Dandre Nichols ; Denny Barroso Stacy L. Other Interventions: Discharge Summary Assessment (RN) Last Done: 03/18/20 10:11 DC Date/Time DO NOT enter until pt leaves facility: 03/18/20 11:32
== END 2020-03-18 11:32 | disposition home or self-care (01) | DRG 247 ==
LOC: ED 14:02 → SUATTDRO 17:31 → 2N 17:31 → 2S 03-17 12:52
PROC: CLB.CCO (2020-03-17 08:00)

== ENCOUNTER 2020-05-24 06:55 | Observation (INO) ==
[2020-05-24] MEDS ORDERED: MIDAZOLAM HCL 1 MG/ML 2ML VIAL ONE ×3 (07:12→08:58)
[2020-05-24] MEDS ORDERED: HEPARIN (PORCINE) 1000 UNIT/ML 10 ML (CATH LAB USE ONLY) ONE ×2 (07:12→09:37)
[2020-05-24] MEDS ORDERED: fentaNYL citrate 100 MCG/2 ML VIAL ONE ×2 (07:12→09:19)
[2020-05-24] MEDS ORDERED: NiCARDipine HCL INJ 2.5 MG/ML 10 ML AMP ONE (07:12)
[2020-05-24] MEDS ORDERED: NITROGLYCERIN/D5W 100MCG/ML 20ML SYR ONE (07:13)
--- NOTE | 2020-05-24 08:12 | Pre Anesthesia Assessment ---
Date of Service May 24, 2020 Pre Sedation Assessment Vital Signs Temp Pulse Resp BP Pulse Ox 05/24/20 07:06 37.1 C 75 16 160/85 H 100 Cardiovascular RRR, no murmur, no edema no JVD Respiratory normal respiratory effort, lungs clear to auscultation Pre-Sedation Airway Assessment Smoking Status: Never smoker Hx Sleep Apnea: No Short, Thick Neck: No Thyromental Distance: > or= 3.5 Finger Breadths Oral Cavity: + WNL Mallampati Class: II ASA: ASA3 NPO Status Date of Last Intake of Fluids: 05/24/20 Time of Last Intake of Fluids: 06:00 Date of Last Intake of Solid Food: 05/23/20 Time of Last Intake of Solid Foods: 18:00 Procedure Planning Contraindications for Sedation: none Current Medications Reviewed: Yes Notes The planned sedation has been discussed with the patient. Informed Consent was obtained. I have identified the patient, determined the appropriateness of sedation and have assessed the patient immediately prior to the procedure. All medicine(s) and interventions are by my order.
--- NOTE | 2020-05-24 08:12 | History & Physical Bridge Note ---
Date of Service May 24, 2020 History & Physical Bridge Note I have examined the patient, reviewed the History & Physical and in the interval since the performance of the History & Physical I have noted the following changes of clinical significance: no changes noted
[2020-05-24] MEDS ORDERED: NITROGLYCERIN SL 0.4 MG/TAB TAB ONE (08:39)
--- NOTE | 2020-05-24 09:17 | Post Anesthesia Assessment ---
Date of Service May 24, 2020 Post Sedation Assessment Vital Signs Temp Pulse Resp BP Pulse Ox 05/24/20 07:06 37.1 C 75 16 160/85 H 100 Recovery Score Activity: Moves 4 extremities Respiration: Deep Breath/Cough Circulation: +/-20% PreAnes Value Consciousness: Fully Awake Oxygen Saturation: > 92% On Room Air Discharge Sedation Level of Care: Phase I Post Sedation Plan On clinical assessment, the patient appears to have tolerated the sedation without complications. Patient is recovering as anticipated. Patient will continue to be monitored by nursing and may be discharged when sedation discharge criteria are met per below protocol. Upon Completions of procedure up to 15 minutes continue every 5 minute vital signs and the P.A.R. score; then discharge to a Phase I or Fast Track to Phase II per the following guidelines: * Discharge Patient to appropriate Phase II area if PAR is 8 or greater or return to pre- procedure baseline. The post - procedure orders will be as directed. * If PAR score is less than 8 or not return to pre-procedure baseline then patient will follow Phase I monitoring till PAR is reached for Phase II. The Phase I may be done in procedure room or may call to secure a Phase I area. * If naloxone or flumazenil are used for reversal, hold in Phase I for continued monitoring from when last reversal dose was given for a minimum of 60 minutes or longer pending the nurse and/or physician discretion of patient condition before discharge to Phase II. Please call the Sedation Physician to re-evaluate and complete post-note for discharge to Phase II area. Do NOT discharge from procedure sedation or Phase 1 until post- sedation evaluation note is complete by procedure /sedation MD Sedation Discharge Instructions to be given to the patient at discharge to home.
--- NOTE | 2020-05-24 09:26 | Cardiac Catheterization ---
Cardiac Cath Procedure Full Procedure Date May 24, 2020 Pre-Procedure Diagnosis Pre-Procedure Diagnosis: Angina, Positive Stress Test and CAD AUC Score AUC Score: 7 Post-Procedure Diagnosis Post-Procedure Diagnosis: Severe CAD Procedure(s) Performed Procedure(s) Performed: Coronary Angiography and Left Heart Cath Poultry Buyer Jack Schreiber DO Hyperbaric Welder Diver(s) [place] SPECIAL NEEDS CHILD CAREGIVER Estimated Blood Loss Estimated Blood Loss: 10cc Medication(s) Medication(s): Fentanyl, Heparin, Lidocaine 1%, Nicardipine, Nitroglycerin and Versed Summary of Findings 50% proximal LAD unchanged 70% mid LAD Patent proximal RCA stent Hemodynamics Rest Ao:: 915351/80 Final Ao: 111/50/81 LV: 107/-3/0 Recommendations Recommendations: PCI without planned CABG Specimens Specimens: None Radiation Exposure (mGy) 585 Contrast (mls) 40 Fluids (cc crystalloids) Fluids (cc crystalloids): 75 Nss Drains Drains: N/A Anesthesia Moderate sedation. Start 0817. End 0902. Sedation monitor: Bella LAFLEUR Procedural Complication(s) None Disposition Patient remained in Concrete Pump Operator for PCI of the LAD. I attest to the content of the Intraoperative Record and any orders documented therein. Any exceptions are noted below. ACC Data: Concrete Pump Operator Cardiac Status Clinical evaluation leading to the procedure CAD Presenation: Positive Stress Test and Unstable angina Anginal Classification: CCS II Heart Failure: No Stress Echocardiogram: Yes - Positive and Risk/Extent of Ischemia (Intermediate) Coronary Anatomy Dominant: Right Left Main (% Stenosis): Distal (20%) LAD (% Stenosis): Proximal (50% followed by long segement of moderate luminal irregularities with stenosis up to 40%) and Mid (75% late-mid ) D1 (% Stenosis): Ostial (20%, small vessel) D2 (% Stenosis): Proximal (long segemnt, 60%) Circumflex (% Stenosis): Normal OM1 (% Stenosis): Normal L PL1 (% Stenosis): Normal RCA (% Stenosis): Proximal (widely patent stent) R PDA (% Stenosis): Normal R PL1 (% Stenosis): Normal R PL2 (% Stenosis): Normal Diagnostic Physicians Name: Jack Schreiber DO Status: Elective Closure Device Percutaneous Entry Location: Radial Closure Device: Radial Band Recommendations: PCI without planned CABG Intraprocedure Events Significant Disection: No Perforation: No
[2020-05-24] MEDS ORDERED: CLOPIDOGREL BISULFATE 300 MG TAB ONE (09:44)
--- NOTE | 2020-05-24 09:47 | Post Anesthesia Assessment ---
Date of Service May 24, 2020 Post Sedation Assessment Vital Signs Temp Pulse Resp BP Pulse Ox 05/24/20 07:06 98.8 F 75 16 160/85 H 100 Recovery Score Activity: Moves 4 extremities Respiration: Deep Breath/Cough Circulation: +/-20% PreAnes Value Consciousness: Fully Awake Oxygen Saturation: > 92% On Room Air Discharge Sedation Level of Care: Fast Track Phase II Post Sedation Plan On clinical assessment, the patient appears to have tolerated the sedation without complications. Patient is recovering as anticipated. Patient will continue to be monitored by nursing and may be discharged when sedation discharge criteria are met per below protocol. Upon Completions of procedure up to 15 minutes continue every 5 minute vital signs and the P.A.R. score; then discharge to a Phase I or Fast Track to Phase II per the following guidelines: * Discharge Patient to appropriate Phase II area if PAR is 8 or greater or return to pre- procedure baseline. The post - procedure orders will be as directed. * If PAR score is less than 8 or not return to pre-procedure baseline then patient will follow Phase I monitoring till PAR is reached for Phase II. The Phase I may be done in procedure room or may call to secure a Phase I area. * If naloxone or flumazenil are used for reversal, hold in Phase I for continued monitoring from when last reversal dose was given for a minimum of 60 minutes or longer pending the nurse and/or physician discretion of patient condition before discharge to Phase II. Please call the Sedation Physician to re-evaluate and complete post-note for discharge to Phase II area. Do NOT discharge from procedure sedation or Phase 1 until post- sedation evaluation note is complete by procedure /sedation MD Sedation Discharge Instructions to be given to the patient at discharge to home.
[2020-05-24] MEDS ORDERED: NITROGLYCERIN SL 0.4 MG/TAB TAB SL PRN (09:52)
[2020-05-24] MEDS ORDERED: ONDANSETRON INJ 2 MG/ML 2 ML VIAL IV PRN (09:52)
--- NOTE | 2020-05-24 09:52 | Cardiac Catheterization ---
[facility] Data: Environmental Health Specialist Cardiac Status Clinical evaluation leading to the procedure CAD Presenation: Stable angina Anginal Classification: CCS III Cardiogenic Shock within 24 Hours: No Cardiac Arrest within 24 Hours: No Imaging Studies Past 6 Months: Yes Stress Studies Past 6 Months: Yes Diagnostic Physicians Name: Adelso Zavala MD Closure Device Percutaneous Entry Location: Radial Closure Device: Radial Band Recommendations: PCI without planned CABG PCI Indication: + Stress Test and Angina despite med therapy Lesion Segment Name: mid LAD Culprit Artery: Yes Stenosis Prior to Rx (%): 70 Chronic Total Occlusion: No IVUS: No FFR: No Pre-Procedure KAILEE Flow: 3 Previously Treated Lesion: No Lesion Complexity: Non-High/Non-C Lesion Length (mm): 10 Thrombus Present: No Bifurcation Lesion: No Guidewire Across Lesion: Stenosis Post-Procedure (%): 0 Post-Procedure KAILEE Flow: 3 Devices(s) Deployed: Yes Yes Intraprocedure Events Significant Disection: No Perforation: No Cardiac Cath Procedure Full Procedure Date May 24, 2020 Pre-Procedure Diagnosis Pre-Procedure Diagnosis: Angina, Positive Stress Test and CAD AUC Score AUC Score: 7 Post-Procedure Diagnosis Post-Procedure Diagnosis: Severe CAD Procedure(s) Performed Procedure(s) Performed: Drug Eluting Stent Computer Technology Trainer Adelso Zavala MD Dairy Grazer(s) Iwona GERMAN Estimated Blood Loss Estimated Blood Loss: 10cc Medication(s) Medication(s): Clopidogrel, Fentanyl, Heparin, Nicardipine, Nitroglycerin and Versed Summary of Findings Indication: Refractory angina Access: 6 Fr slender right radial artery Catheters: EBU 3.5 guide Findings: For full details of patient's coronary angiography please see cath report dictated by Dr. Schreiber. Briefly, patient found to have severe single-vessel disease with a 70% mid LAD stenosis. Decision to proceed with PCI. -- PCI -- Antithrombotic therapy: Heparin, clopidogrel Procedure: Left main cannulated with EBU 3.5 guide [place] 50 wire passed across lesion into distal vessel Mid LAD lesion predilated with 2.0 compliant balloon Dilated lesion stented with 2.5 x 12 mm [place] drug-eluting stent Stent post-dilated with 2.5 noncompliant balloon IC vasodilators administered for spasm Post procedure KAILEE 3 flow, stent well expanded with minimal residual stenosis and no apparent cardiac complications. Arterial Closure: TR band Summary: 1. Successful PCI of mid LAD with single drug-eluting stent (2.5 x 12 mm [place]). Recommendations: To PCU for continued monitoring Reloaded with clopidogrel 300 mg in Environmental Health Specialist Continue dual-antiplatelet therapy for at least 6 months Continue statin, and ASCVD risk factor modification Consult cardiac Rehab Hemodynamics Rest Ao:: 110/56/80 Final Ao: 105/58/80 LV: -- Recommendations Recommendations: PCI without planned CABG Specimens Specimens: None Radiation Exposure (mGy) 1394 Contrast (mls) 70 Fluids (cc crystalloids) Fluids (cc crystalloids): 159 Drains Drains: N/A Anesthesia Moderate sedation. Procedural Complication(s) None Disposition PCU I attest to the content of the Intraoperative Record and any orders documented therein. Any exceptions are noted below. [facility] Card Cath Procedure Codes Moderate Sedation Procedure 1: Sedation/Anesthesia: 40688 Mod Sedation by the same physician; Ea [id number] Minutes Stenting Procedure 1: Cardiovascular Stent Procedures: 42546 Perc transcatheter placement of intracoronary stent(s), with ang PG Care Time/CCT Total # of Minutes Spent Total Time Spent with Patient: Total time spent is greater than 50% in coordination of care (as documented) at patient's floor/unit and/or counseling patient:
[2020-05-24] MEDS ORDERED: ALBUTEROL HFA 8 GM INHALER INH PRN (09:54)
[2020-05-24] MEDS ORDERED: GLUCOSE 40% GEL 15 GM TUBE PO PRN (09:56)
[2020-05-24] MEDS ORDERED: DEXTROSE 50% 50 ML SYRINGE IV PRN (09:56)
[2020-05-24] MEDS ORDERED: CARBOHYDRATES FOR HYPOGLYCEMIA PO PRN (09:56)
[2020-05-24] MEDS ORDERED: GLUCOSE 10 TABS/TUBE PO PRN (09:56)
[2020-05-24] MEDS ORDERED: GLUCAGON FOR INJ 1 MG VIAL SQ PRN (09:56)
[2020-05-24] MEDS ORDERED: INSULIN ASPART PER UNIT SQ SCH (10:00)
[2020-05-24] MEDS ORDERED: SODIUM CHLORIDE 0.9% 1000ML 1,000 ML IV SCH (10:00)
[2020-05-24] MEDS ORDERED: PHARMACY GLYCEMIC MGMT CONSULT PRN (10:41)
--- NOTE | 2020-05-24 11:27 | Pharmacy Report ---
Glycemic Control Consultation - Date of Service May 24, 2020 - Scope Scope: Glycemic Pharmacist consulted for glycemic control and to write orders per [facility] inpatient glycemic control protocol. - Objective Weight: 82 kg Accuchecks BSG (last 24hrs): 05/24/20 11:08 POC Glucose 108 H - Recent Pertinent Medications Outpatient Anti-diabetic Regimen: * Novolog Insulin - Pump Settings: * Basal Rate = 0.5 units/hr * Correction Factor = 1 unit for every 50 mg/dL above goal * Carb Ratio = 1 unit for every 15 gm CHO * Goal Range = 90 - 100 mg/dL from 6887-6822 & 100 - 110 from 1431-1047 * A1c = 6.1% from 03/16/2020 Risk Factors for Insulin Resistance: * Recent Surgery: * POD #0 s/p cardiac catheterization * Diet: * T1DM - Assessment & Plan Assessment & Plan: ASSESSMENT: * 55 yo M admitted to undergo cardiac catheterization secondary to stable angina. Pharmacy is consulted from inpatient glycemic management. * Patient is a well-controlled Type 1 Diabetic on Novolog Insulin Pump. Patient has a [place] Continuous Glucose Monitor. His pump settings were verified by myself and are listed above. * Patient wishes to continue using his insulin pump while inpatient and is comfortable with doing so. He has all his insulin pump supplies with him. * RN already had patient sign consent form CF 006 "Insulin Pump Therapy Patient Agreement" and patient form [id number] "Flowsheet for Patient Performed Blood Glucose Monitoring" was at bedside upon my arrival to the room. * Post-operative BSG was 106 mg/dL. Pharmacy will continue to follow. PLAN FOR INPATIENT GLYCEMIC CONTROL: * Novolog Insulin Pump * Goal Range: * 0000 - 0800 = 100 - 110 mg/dL * 0800 - 0000 = 90 - 100 mg/dL * Correction Factor: 1 unit of insulin for every 50 mg/dL above goal range * Carb Ratio: 1 unit of insulin for every 15 gms of CHO * Please note that the plan above was derived based on current level of insulin resistance and hospital stress. These recommendations are appropriate for inpatient admission only. Plan of care upon discharge will need to be reassessed to avoid potential outpatient hypo/hyperglycemia. Thank you.
[2020-05-24] MEDS ORDERED: INSULIN ASPART 100 UNITS/ML VIAL SC PRN (11:30)
[2020-05-24] MEDS: NovoLOG INSULIN PUMP SCH ×3 (11:59→20:23)
[2020-05-24] MEDS: HYDROCODONE/ACETAMOPHEN 5/325MG TAB PO PRN ×2 (12:02→18:11)
--- NOTE | 2020-05-24 15:27 | Electrocardiogram Report ---
Test Reason : Blood Pressure : / mmHG Vent. Rate : 058 BPM Atrial Rate : 058 BPM P-R Int : 158 ms QRS Dur : 082 ms QT Int : 386 ms P-R-T Axes : 031 018 033 degrees QTc Int : 378 ms Sinus bradycardia Otherwise normal ECG When compared with ECG of 16-MAR-2020 06:48, No significant change was found Confirmed by Andrei Cardona ([id number]) on 05/24/2020 3:26:29 PM Referred By: Jack Schreiber Confirmed By:Andrei Cardona
[2020-05-25] MEDS: HYDROCODONE/ACETAMOPHEN 5/325MG TAB PO PRN ×2 (03:30→09:40)
[2020-05-25 05:54] LABS: Basophils # (auto) 0.03 K/uL (0-0.2); Basophils % (auto) 0.6 %; Eosinophils # (auto) 0.11 K/uL (0-0.5); Eosinophils % (auto) 2.2 %; Hematocrit (blood only) 35.3 % (42-52); Lymphocytes # (auto) 1.36 K/uL (1.2-3.4); Lymphocytes % (auto) 27.4 %; Mean Corpuscular Hemoglobin 29.2 pg (25-34); Mean Corpuscular Volume 85.9 fL (80-100); Mean Platelet Volume 11.6 fL (7.4-10.4); Monocytes % (auto) 10.1 %; Neutrophils # (auto) 2.96 K/uL (1.4-6.5); Neutrophils % (auto) 59.7 %; Platelet Count 200 K/uL (130-400); RDW Coefficient of Variation 13.8 % (11.5-14.5); RDW Standard Deviation 43.6 fL (36.4-46.3); Red Blood Count 4.11 M/uL (4.7-6.1); White Blood Count 4.96 K/uL (4.8-10.8)
[2020-05-25 06:06] LABS: BUN Creatinine Ratio 19.8 (10-20); Creatinine Clr Calc Pharmacy 111.6 ml/min; Est GFR (African American) 115.9; Potassium 3.8 mmol/L (3.5-5.1)
[2020-05-25] MEDS ORDERED: FOLIC ACID 1 MG TAB PO SCH (09:00)
[2020-05-25] MEDS ORDERED: CLOPIDOGREL BISULFATE 75 MG TAB PO SCH (09:00)
[2020-05-25] MEDS ORDERED: METOPROLOL SUCC 25MG EXT REL TAB PO SCH (09:00)
[2020-05-25] MEDS ORDERED: ASPIRIN 81 MG ECTAB PO SCH (09:00)
[2020-05-25] MEDS ORDERED: PANTOprazole 40 MG TAB PO SCH (09:00)
[2020-05-25] MEDS: NovoLOG INSULIN PUMP SCH (09:34)
--- NOTE | 2020-05-25 11:39 | Cardiology Progress Note ---
Date of Service May 25, 2020 Assessment & Plan (1) CAD (coronary artery disease), [place] coronary artery: Status post successful PCI to the mid LAD. Feeling well tolerating dual antiplatelet therapy. For discharge to home at this time. My office will call to arrange follow-up as an outpatient. Restrictions reviewed. Admission and Anticipated Discharge Date Admission Date: May 24, 2020 Subjective Patient seen and examined, chart reviewed. States he is feeling very well status post PCI. Has not had any recurrences of chest discomfort and denies any shortness of breath, palpitations, lightheadedness, dizziness or syncope. Telemetry reviewed: Normal sinus rhythm without arrhythmia or significant ectopy. Review of Systems Review of Systems: All systems reviewed & are unremarkable except as noted in HPI & below Physical Exam Physical Exam: General: Awake, alert and oriented x 3. No acute distress. HEENT: Normocephalic, atraumatic. Pupils equal, round and reactive to light and accommodation. Extraocular muscles are intact. Anicteric sclera. Moist mucous membranes. Neck: No JVD. No bruit. Cardiovascular: Regular. Positive S-4. Normal S-1 and S-2. No S-3. No murmurs or rubs. Pulmonary: Clear to auscultation B/L. No rales, rhonchi or wheezing Abdomen: Bowel sounds x 4, soft. No rebound, guarding or tenderness. No organomegaly. Extremities: No clubbing, cyanosis or edema. +2 pedal pulses bilaterally. Skin: Warm and dry. Results & Data ([facility]) Vital Signs (Past 12 Hours) Vital Signs Temp Pulse Resp BP Pulse Ox 05/25/20 11:11 37.1 C 20 147/70 H 98 05/25/20 07:35 36.9 C 62 18 125/79 96 05/25/20 04:23 36.8 C 64 20 121/72 93
--- NOTE | 2020-05-25 11:42 | Discharge Summary ---
Date of Service May 25, 2020 Admission Exam Per Admitting Provider General: Awake, alert and oriented x 3. No acute distress. HEENT: Normocephalic, atraumatic. Pupils equal, round and reactive to light and accommodation. Extraocular muscles are intact. Anicteric sclera. Moist mucous membranes. Neck: No JVD. No bruit. Cardiovascular: Regular. Positive S-4. Normal S-1 and S-2. No S-3. No murmurs or rubs. Pulmonary: Clear to auscultation B/L. No rales, rhonchi or wheezing Abdomen: Bowel sounds x 4, soft. No rebound, guarding or tenderness. No organomegaly. Extremities: No clubbing, cyanosis or edema. +2 pedal pulses bilaterally. Skin: Warm and dry. Principal Diagnosis 1. Successful PCI of mid LAD with single drug-eluting stent (2.5 x 12 mm [place]). Discharge Exam General: Awake, alert and oriented x 3. No acute distress. HEENT: Normocephalic, atraumatic. Pupils equal, round and reactive to light and accommodation. Extraocular muscles are intact. Anicteric sclera. Moist mucous membranes. Neck: No JVD. No bruit. Cardiovascular: Regular. Positive S-4. Normal S-1 and S-2. No S-3. No murmurs or rubs. Pulmonary: Clear to auscultation B/L. No rales, rhonchi or wheezing Abdomen: Bowel sounds x 4, soft. No rebound, guarding or tenderness. No organomegaly. Extremities: No clubbing, cyanosis or edema. +2 pedal pulses bilaterally. Skin: Warm and dry. Discharge Data Allergies Allergy/AdvReac Type Severity Reaction Status Date / Time Sulfa (Sulfonamide Allergy Intermediate RASH Verified 03/15/20 15:58 Antibiotics) milk AdvReac Intermediate STOMACH Verified 03/15/20 15:58 UPSET diphenhydramine AdvReac Hypotension Verified 05/24/20 07:27 [From Benadryl] prednisone AdvReac Unknown Verified 05/24/20 07:27 ANTIVIRALS AdvReac Severe KIDNEY Uncoded 03/15/20 15:58 FAILURE Consultations 05/24/20 09:54 Consult Cardiac Rehabilitation Routine Procedures Performed Operation Date: 05/24/20 08:00 Actual Procedures p Cath, Left with Cors and Vent - Jack O Kopinski, DO s Cineradiography w/Routine Exam - DO francisco Pal Drug Eluting Stent SGl Vessel - Kendrick Zavala MD Ordered Studies 05/24/20 06:33 CL Cath Imgs for PACS use only Routine Total Time Total Time Spent Total Time Spent (In Minutes): 22 Total Time Includes: Examination of the Patient, Discharge Planning and Medication Reconciliation Discharge Plan Discharge Items Patient Disposition: Home - Self-Care Reason For Visit: CAD; S/P PCI LAD Discharge Diagnosis: cad s/p pci to LAD Activity: Per Instructions section Lifting: Gradually increase as tolerated Bathing: No limitations Sexual Activity: When tolerated Exercise/Sports: Rest today and Gradually increase as tolerated Driving/Machine Use: Resume 1 day after discharge Non-emergency contact: Primary Care Provider Call non-emergency contact if: you have any medication questions Follow-up/Referrals: Linda Schreiber DO [Primary Care Provider] - 05/31/20 11:00 am Diet: Carb Count or DM1 Addtl Attending Provider Instructions: office will call to arrange follow up Pending Studies at Discharge: No Stand-Alone Forms: My [place], Smoking Cessation Medications and DC Order Prescriptions: Continued metoprolol succinate 100 mg tablet extended release 24 hr 75 mg PO QAM RF: 0 clobetasol 0.05 % cream 1 applic TOPICAL BID PRN (Reason: Psoriasis Flares) RF: 0 lorazepam 1 mg tablet 0.5 - 1 mg PO DIRECTED PRN (Reason: Prior to Eye Injection) RF: 0 Enbrel SureClick 50 mg/mL (1 mL) pen injector 50 mg SUBCUT WK RF: 0 pantoprazole 20 mg tablet,delayed release (DR/EC) 20 mg PO QAM RF: 0 insulin aspart U-100 [Novolog U-100 Insulin aspart] 100 unit/mL solution See Rx Instructions .ROUTE .COMPLEX RF: 0 erythromycin-benzoyl peroxide 3-5 % gel 1 applic TOPICAL DAILY RF: 0 folic acid 1 mg Tablet 1 mg PO DAILY RF: 0 clopidogrel 75 mg Tablet 75 mg PO QAM Qty: 30 RF: 0 nitroglycerin 0.4 mg tablet, sublingual 0.4 mg sublingual UD Qty: 30 RF: 0 hydrocodone-acetaminophen [[place]] 5-325 mg Tablet 1 tab PO Q6H PRN (Reason: Pain) RF: 0 aspirin [Aspir-81] 81 mg Tablet,Delayed Release (Dr/Ec) 81 mg PO QAM RF: 0 sildenafil 100 mg Tablet 100 mg PO DAILY PRN (Reason: Erectile Dysfunction) RF: 0 albuterol sulfate [Ventolin HFA] 90 mcg/actuation Hfa Aerosol Inhaler 2 puff INHALATION DIRECTED PRN (Reason: Shortness Of Breath Or Wheezing) RF: 0 Discharge Orders: Discharge Order (Routine); Ordered 05/25/20 Ordered By: Denny Barroso Admission Data Admit Date/Time: 05/24/20 09:33 Attending Provider: Jack Schreiber Admit Provider: Jack Schreiber Primary Care Provider: Linda Schreiber Other Interventions: Discharge Summary Assessment (RN) Last Done: 05/25/20 12:02
== END 2020-05-25 12:36 | disposition home or self-care (01) ==
LOC: 2S 06:55 → CC 06:55 → 2S 09:33